=== PATIENT | male | born 1945 | race Caucasian/White ===

== ENCOUNTER 2017-02-12 19:07 | Emergency (ER) | payer MEDICARE, OTHER ==
[2017-02-12 19:21] VITALS: BP 170/96
--- NOTE | 2017-02-12 19:37 | UC ---
Shortness of Breath HPI - HPI Summary HPI Summary: WOKE UP THIS AM FEELING SOB. WORSENED OVER THE DAY. WORSE WITH EXERTION. HAS SOME SWEATS. FEVER NOTED UPON PRESENTATION HERE TO . DENIES CP, NAUSEA. DROVE TO [place] AND BACK TO DAY FOR WORK. DENIES CALF TENDERNESS. HAS SOME DYSURIA SINCE YESTERDAY. H/O HTN, CHOLESTEROL, DM AND CAD S/P 4V CABG. - History of Current Complaint Chief Complaint: UCGeneralIllness Stated Complaint: DIFFICULTY BREATHING Time Seen by Provider: 02/12/17 19:19 Hx Obtained From: Patient, Family/Cartography Supervisor - Onset/Duration: Sudden Onset, Lasting Hours, Still Present Timing: Constant Current Severity: Moderate Dyspnea At: Rest Aggrevating Factors: Movement Alleviating Factors: Nothing Associated Signs & Symptoms: Positive: Fever, Diaphoresis, Edema. Negative: Wheezing, Chest Pain w/Cough, Chest Pain Unrelated to Cough, Nasal Congestion, Dizzy Related History: Obesity - Allergy/Home Medications Allergies/Adverse Reactions: Allergies Allergy/AdvReac Type Severity Reaction Status Date / Time Heparin Allergy Severe See Comment Verified 02/12/17 19:22 PMH/Surg Hx/FS Hx/Imm Hx Endocrine History: Diabetes, Dyslipidemia Cardiovascular History: Cardiac Disease - 4V CABG 2010, Hypertension - Surgical History Surgical History: Yes Surgery Procedure, Year, and Place: CABG-2009 [facility]. BILAT. CATARACTS [facility]-1999 [place], [place] & 2010 [facility]. 09/17/13, BLADDER STONES, [facility] - Family History Known Family History: Positive: Hypertension, Other - CVA - Social History Alcohol Use: None Alcohol Amount: 2 PER DAY Substance Use Type: None Smoking Status (MU): Never Smoked Tobacco - Immunization History Most Recent Influenza Vaccination: 2011 Review of Systems Constitutional: Fever Respiratory: Shortness Of Breath Cardiovascular: Negative Gastrointestinal: Negative Genitourinary: Dysuria All Other Systems Reviewed And Are Negative: Yes Physical Exam Triage Information Reviewed: Yes Appearance: No Pain Distress, Well-Nourished, Ill-Appearing, Obese Vital Signs: Initial Vital Signs Temp 103.6 F 02/12/17 19:19 Pulse 121 02/12/17 19:19 Resp 40 02/12/17 19:19 BP 170/96 02/12/17 19:19 Pulse Ox 91 02/12/17 19:19 Vital Signs Reviewed: Yes Eyes: Positive: Conjunctiva Clear ENT: Positive: Hearing grossly normal Neck: Positive: Supple Respiratory: Positive: Respiratory distress, Crackles - RIGHT BASE - POOR QUALITY LUNG EXAM DUE TO PT INABILITY TO SIT UPRIGHT, Other: - TACHYPNEIC Cardiovascular: Positive: Tachycardia Abdomen Description: Positive: Soft, Other: - MILDLY TENDER DIFFUSELY Musculoskeletal: Positive: Edema @ - 2+ PITTING ANKLE EDEMA. NO CALF TENDERNESS. NEG HOMANS Neurological: Positive: Alert Psychological: Positive: Normal Response To Family, Age Appropriate Behavior. Negative: Abnormal Response To Family Skin: Negative: rashes Diagnostics - EKG Cardiac Rate: Tachycardia - 124BPM Ectopy: None ST Segment: Normal Shortness of Breath Dx - Differential Dx/Diagnosis Provider Diagnoses: DYSPNEA, HYPOXIA, TACHYCARDIA - Physician Notification/Consults Discussed Patient Care With: DR. GREG BELCHER Time Discussed With Above Provider: 19:30 - TO [facility] ER BY AMBULANCE Instructed by Provider To: MD Will See In ED Discharge - Discharge Plan Condition: Guarded Disposition: TRANS HIGHER LVL OF CARE FAC Referrals: Dhiraj Mcgregor MD [Primary Care Provider] -
[2017-02-12] MEDS ORDERED: Ibuprofen TAB* 600 MG PO ONE (19:42)
== END 2017-02-12 19:57 | disposition short-term general hospital (02) ==
LOC: UCEAST 19:07
DX: R06.00 Dyspnea, unspecified (principal); R09.02 Hypoxemia; R00.0 Tachycardia, unspecified; Z95.1 Presence of aortocoronary bypass graft; I10 Essential (primary) hypertension; E11.9 Type 2 diabetes mellitus without complications; E78.00 Pure hypercholesterolemia, unspecified
CPT/HCPCS: 81003; 93005; 99213; A9270-GY; G0463

== ENCOUNTER 2017-02-12 20:06 | Inpatient (IN) | payer MEDICARE ==
[2017-02-12] MEDS ORDERED: NS 0.9% 1000 ML* 1,000 ML IV SCH ×3 (20:15→23:00)
[2017-02-12 20:47] LABS: Hematocrit 47 % (42-52); Hemoglobin 15.8 g/dl (14.0-18.0); Mean Corpuscular HGB Conc 34 g/dl (31-36); Mean Corpuscular Hemoglobin 33 pg (27-31); Mean Corpuscular Volume 98 fL (80-94); Mean Platelet Volume 8 um3 (7.4-10.4); Red Blood Count 4.78 10^6/ul (4.0-5.4); Red Cell Distribution Width 14 % (10.5-15)
[2017-02-12 21:05] LABS: Albumin 3.8 g/dL (3.2-5.2); BUN/Creatinine Ratio 17.7 (8-20); C Reactive Protein 130.37 mg/L (< 5.00); Calcium 9.1 mg/dL (8.6-10.3); EGFR African American 63.4 (>60); EGFR Non-African American 49.3 (>60); Globulin 2.8 g/dL (2-4); Magnesium 1.6 mg/dL (1.9-2.7); Potassium 3.4 mmol/L (3.5-5.0); Total Bilirubin 0.9 mg/dL (0.2-1.0); Total Protein 6.6 g/dL (6.4-8.9)
[2017-02-12 21:21] LABS: Troponin I 0.07 ng/mL (<0.04)
--- NOTE | 2017-02-12 21:28 | RAD ---
INDICATION: Fever COMPARISON: January 12, 2010 TECHNIQUE: An AP portable view obtained at 2103 hours is submitted. FINDINGS: Bones/Soft Tissues: There are no acute bony findings. There is sternotomy is CABG Cardiomediastinal: The heart is mildly prominent, unchanged. Lungs: There are no acute infiltrates. There are mild chronic parenchymal changes in the left chest. Pleura: There are no pleural effusions. Other: None IMPRESSION: POSTOPERATIVE CHANGE. MILD CHRONIC CHANGE LEFT CHEST. NO ACUTE FINDINGS.
[2017-02-12 21:45] LABS: TSH (Thyroid Stimulating Horm) 1.24 mcIU/mL (0.34-5.60)
[2017-02-12 22:34] LABS: Urine Bacteria Absent (Absent); Urine Bilirubin Negative (Negative); Urine Glucose Negative (Negative); Urine Nitrite Negative (Negative)
[2017-02-12] MEDS ORDERED: Levofloxacin 750 MG IVPREMIX(* 750 MG/150 ML BAG IVPB ONE (22:42)
[2017-02-12] MEDS ORDERED: NS 0.9% 1000 ML* 1,000 ML IV ONE (22:43)
[2017-02-12] MEDS ORDERED: Magnesium Sulfate 2 GM IV* 2 GM/50 ML BAG IVPB ONE (22:54)
[2017-02-12] MEDS ORDERED: Albuterol 2.5 MG/3 ML NEB.SOL* (0.083%) INH PRN (22:58)
[2017-02-12] MEDS ORDERED: CMCS: Melatonin (NF) 3 MG TAB PO PRN (22:58)
[2017-02-12] MEDS ORDERED: Ondansetron INJ* 2 MG/ML VIAL IV PRN (22:58)
[2017-02-12] MEDS ORDERED: Nicotine Inhaler* 10 MG AMP INH PRN (22:58)
[2017-02-13] MEDS: Potassium Chlor TAB* 20 MEQ TAB.ER PO SCH ×2 (00:58→02:53)
--- NOTE | 2017-02-13 01:25 | ED ---
john Camacho Timothy, scribed for Edvin Hardy MD on 02/12/17 at 2240 . Complex/Multi-Sys Presentation - HPI Summary HPI Summary: Jerry Ames is a 72 yo male presenting to [facility] with generalized weakness since yesterday. He also c/o rhinorrhea, chest congestion, dysuria, fever, tachycardia, and cough. He denies any abd pain, CP, sore throat. His MHx includes NV, CAD, CABGx3, HTN, DM II, bladder stones. He has seen Dr. Baez. - History Of Current Complaint Chief Complaint: EDWeakness Time Seen by Provider: 02/12/17 22:35 Hx Obtained From: Patient Onset/Duration: Gradual Onset, Lasting Hours, Still Present Timing: Constant Severity Currently: Moderate Severity Initially: Moderate Associated Signs And Symptoms: Positive: Weakness, Cough, Dysuria, Fever, Other - rhinorrhea, tachycardia. Negative: Chest Pain - Allergies/Home Medications Allergies/Adverse Reactions: Allergies Allergy/AdvReac Type Severity Reaction Status Date / Time Heparin Allergy Severe See Comment Verified 02/12/17 19:22 PMH/Surg Hx/FS Hx/Imm Hx Endocrine/Hematology History: Reports: Hx Diabetes - TYPE 2-ON ORAL MEDICATION Denies: Hx Thyroid Disease Cardiovascular History: Reports: Hx Coronary Artery Disease - TRIPLE BYPASS, Hx Hypertension - ON MEDICATION, Other Cardiovascular Problems/Disorders - THALLIUM STRESS TEST/CABG 2009 Respiratory History: Reports: Other Respiratory Problems/Disorders - CHRONIC POST NASAL DRIP Denies: Hx Asthma GI History: Denies: Hx Ulcer, Other GI Disorders Musculoskeletal History: Denies: Other Musculoskeletal History Sensory History: Reports: Hx Cataracts - SKY, Hx Contacts or Glasses - GLASSES Denies: Hx Hearing Aid Opthamlomology History: Reports: Hx Cataracts - SKY, Hx Contacts or Glasses - GLASSES Neurological History: Denies: Other Neuro Impairments/Disorders - Surgical History Surgery Procedure, Year, and Place: CABG-2009 [facility]. BILAT. CATARACTS [facility]-[facility] [place] [place] & 2010 [facility] [place]. 09/17/13, BLADDER STONES, [facility] Hx Anesthesia Reactions: No Infectious Disease History: No Infectious Disease History: Denies: Hx Clostridium Difficile, Hx Hepatitis, Hx Human Immunodeficiency Virus (HIV), Hx of Known/Suspected MRSA, Hx Shingles, Hx Tuberculosis, Hx Known/ Suspected VRE, Hx Known/Suspected VRSA, History Other Infectious Disease, Traveled Outside the [place] in Last 30 Days - Family History Known Family History: Positive: Hypertension, Other - CVA - Social History Alcohol Use: None Alcohol Amount: 2 PER DAY Substance Use Type: Reports: None Smoking Status (MU): Never Smoked Tobacco Review of Systems Positive: Fever Eyes: Negative Positive: Nasal Discharge Positive: Palpitations - tachycardia Positive: Cough Gastrointestinal: Negative Positive: dysuria Musculoskeletal: Negative Skin: Negative Neurological: Negative Psychological: Normal All Other Systems Reviewed And Are Negative: Yes Physical Exam Triage Information Reviewed: Yes Vital Signs On Initial Exam: Initial Vitals Pulse Resp BP Pulse Ox 105 26 161/97 96 02/12/17 21:04 02/12/17 21:04 02/12/17 21:04 02/12/17 21:04 Vital Signs Reviewed: Yes Appearance: Positive: No Pain Distress, Well-Nourished, Ill-Appearing - mild Skin: Positive: Warm, Skin Color Reflects Adequate Perfusion, Dry, Other - hot to touch Head/Face: Positive: Normal Head/Face Inspection Eyes: Positive: EOMI, ARTHUR ENT: Positive: Other - oral mucosa dry Neck: Positive: Supple, Nontender Respiratory/Lung Sounds: Positive: Clear to Auscultation, Breath Sounds Present Cardiovascular: Positive: Tachycardia Abdomen Description: Positive: Nontender, Soft Bowel Sounds: Positive: Present Musculoskeletal: Positive: Normal, Strength/ROM Intact Neurological: Positive: Sensory/Motor Intact, Alert, Oriented to Person Place, Time Psychiatric: Positive: Affect/Mood Appropriate - [place] Coma Scale Coma Scale Total: 15 Diagnostics - Vital Signs Vital Signs Temp Pulse Resp BP Pulse Ox 02/12/17 21:30 100 22 160/81 97 02/12/17 21:16 98.1 F 98 18 161/97 97 02/12/17 21:04 105 26 161/97 96 - Laboratory Lab Results: Lab Results 02/12/17 02/12/17 02/12/17 Range/Units 20:36 20:36 20:36 WBC 10.0 (3.5-10.8) 10^3/ul RBC 4.78 (4.0-5.4) 10^6/ul Hgb 15.8 (14.0-18.0) g/dl Hct 47 (42-52) % MCV 98 H (80-94) fL MCH 33 H (27-31) pg MCHC 34 (31-36) g/dl RDW 14 (10.5-15) % Plt Count 127 L (150-450) 10^3/ul MPV 8 (7.4-10.4) um3 Neut % (Auto) 87.1 H (38-83) % Lymph % (Auto) 3.1 L (25-47) % [place] % (Auto) 9.4 H (1-9) % Eos % (Auto) 0 (0-6) % Baso % (Auto) 0.4 (0-2) % Absolute Neuts (auto) 8.7 H (1.5-7.7) 10^3/ul Absolute Lymphs (auto) 0.3 L (1.0-4.8) 10^3/ul Absolute Monos (auto) 0.9 H (0-0.8) 10^3/ul Absolute Eos (auto) 0 (0-0.6) 10^3/ul Absolute Basos (auto) 0 (0-0.2) 10^3/ul Absolute Nucleated RBC 0 10^3/ul Nucleated RBC % 0 INR (Anticoag Therapy) 1.07 (0.89-1.11) APTT 32.2 (26.0-36.3) seconds Sodium 133 (133-145) mmol/L Potassium 3.4 L (3.5-5.0) mmol/L Chloride 98 L (101-111) mmol/L Carbon Dioxide 24 (22-32) mmol/L Anion Gap 11 (2-11) mmol/L BUN 25 H (6-24) mg/dL Creatinine 1.41 H (0.67-1.17) mg/dL Est GFR ( Amer) 63.4 (>60) Est GFR (Non-Af Amer) 49.3 (>60) BUN/Creatinine Ratio 17.7 (8-20) Glucose 200 H (70-100) mg/dL Lactic Acid (0.5-2.0) mmol/L Calcium 9.1 (8.6-10.3) mg/dL Magnesium 1.6 L (1.9-2.7) mg/dL Total Bilirubin 0.90 (0.2-1.0) mg/dL AST 16 (13-39) U/L ALT 19 (7-52) U/L Alkaline Phosphatase 57 (34-104) U/L Total Creatine Kinase 252 H (10-223) U/L CK-MB (CK-2) 3.3 (0.6-6.3) ng/mL Troponin I 0.07 H* (<0.04) ng/mL C-Reactive Protein 130.37 H (< 5.00) mg/L B-Natriuretic Peptide ( - 100) pg/mL Total Protein 6.6 (6.4-8.9) g/dL Albumin 3.8 (3.2-5.2) g/dL Globulin 2.8 (2-4) g/dL Albumin/Globulin Ratio 1.4 (1-3) Lipase 12 (11.0-82.0) U/L TSH 1.24 (0.34-5.60) mcIU/mL Urine Color Urine Appearance Urine pH (5-9) Ur Specific [place] (1.010-1.030) Urine Protein (Negative) Urine Ketones (Negative) Urine Blood (Negative) Urine Nitrate (Negative) Urine Bilirubin (Negative) Urine Urobilinogen (Negative) Ur Leukocyte Esterase (Negative) Urine WBC (Auto) (Absent) Urine RBC (Auto) (Absent) Urine Bacteria (Absent) Urine Glucose (Negative) 02/12/17 02/12/17 02/12/17 Range/Units 20:36 20:36 21:08 WBC (3.5-10.8) 10^3/ul RBC (4.0-5.4) 10^6/ul Hgb (14.0-18.0) g/dl Hct (42-52) % MCV (80-94) fL MCH (27-31) pg MCHC (31-36) g/dl RDW (10.5-15) % Plt Count (150-450) 10^3/ul MPV (7.4-10.4) um3 Neut % (Auto) (38-83) % Lymph % (Auto) (25-47) % [place] % (Auto) (1-9) % Eos % (Auto) (0-6) % Baso % (Auto) (0-2) % Absolute Neuts (auto) (1.5-7.7) 10^3/ul Absolute Lymphs (auto) (1.0-4.8) 10^3/ul Absolute Monos (auto) (0-0.8) 10^3/ul Absolute Eos (auto) (0-0.6) 10^3/ul Absolute Basos (auto) (0-0.2) 10^3/ul Absolute Nucleated RBC 10^3/ul Nucleated RBC % INR (Anticoag Therapy) (0.89-1.11) APTT (26.0-36.3) seconds Sodium (133-145) mmol/L Potassium (3.5-5.0) mmol/L Chloride (101-111) mmol/L Carbon Dioxide (22-32) mmol/L Anion Gap (2-11) mmol/L BUN (6-24) mg/dL Creatinine (0.67-1.17) mg/dL Est GFR ( Amer) (>60) Est GFR (Non-Af Amer) (>60) BUN/Creatinine Ratio (8-20) Glucose (70-100) mg/dL Lactic Acid 1.1 (0.5-2.0) mmol/L Calcium (8.6-10.3) mg/dL Magnesium (1.9-2.7) mg/dL Total Bilirubin (0.2-1.0) mg/dL AST (13-39) U/L ALT (7-52) U/L Alkaline Phosphatase (34-104) U/L Total Creatine Kinase (10-223) U/L CK-MB (CK-2) (0.6-6.3) ng/mL Troponin I (<0.04) ng/mL C-Reactive Protein (< 5.00) mg/L B-Natriuretic Peptide 275 H ( - 100) pg/mL Total Protein (6.4-8.9) g/dL Albumin (3.2-5.2) g/dL Globulin (2-4) g/dL Albumin/Globulin Ratio (1-3) Lipase (11.0-82.0) U/L TSH (0.34-5.60) mcIU/mL Urine Color Pending Urine Appearance Cloudy Urine pH 6.0 (5-9) Ur Specific [place] 1.022 (1.010-1.030) Urine Protein 3+(>=500 mg/dl) H (Negative) Urine Ketones 1+ H (Negative) Urine Blood 3+ H (Negative) Urine Nitrate Negative (Negative) Urine Bilirubin Negative (Negative) Urine Urobilinogen Negative (Negative) Ur Leukocyte Esterase 2+ H (Negative) Urine WBC (Auto) 3+(>20/hpf) H (Absent) Urine RBC (Auto) 3+(>10/hpf) H (Absent) Urine Bacteria Absent (Absent) Urine Glucose Negative (Negative) Result Diagrams: 02/12/17 20:36 02/12/17 20:36 Lab Statement: Any lab studies that have been ordered have been reviewed, and results considered in the medical decision making process. - Radiology CXR Xray Interpretation: No Acute Changes - IMPRESSION: POSTOPERATIVE CHANGE. MILD CHRONIC CHANGE LEFT CHEST. NO ACUTE FINDINGS. Radiology Interpretation Completed By: Radiologist - EKG 2058 Cardiac Rate: Tachycardia - 105 BPM EKG Interpretation: Sinus tachycardia @ 105BPM, Complex Multi-Symp Course/Dx Assessment/Plan: Jerry Ames is a 72 yo male [facility] with generalized weakness for the past day with accompanying rhinorrhea, chest congestion, dysuria, fever, and cough. His medication list is reviewed this visit. In the ED course he received IV fluids and levaquin. His EKG suggests tachcardia, ST depression, and multiple PVC's. His CXR; no acute findings. After cliical examination and review of his lab and imaging studies, as well as discussion with Dr. Sanchez, he will be admitted to [facility] for further observation, evaluation, and treatment. NO CRITICAL CARE TIME. ADMIT HOSPITALIST STABLE. - Diagnoses Provider Diagnoses: UTI (urinary tract infection), Fever, Elevated troponin - Physician Notifications Discussed Care Of Patient With: Brandon Sanchez - Discussed Pt condition, accepts Pt for admission Time Discussed With Above Provider: 22:43 Instructed by Provider To: Admit As Inpatient Discharge - Discharge Plan Condition: Stable Disposition: ADMITTED TO [facility] The documentation as recorded by the john russell Timothy accurately reflects the service I personally performed and the decisions made by me, Edvin Hardy MD.
[2017-02-13] MEDS ORDERED: Mouth Piece, Nicotine* 1 EACH CARTRIDGE INH ONE (02:00)
--- NOTE | 2017-02-13 05:08 | HP ---
H&P (Free Text) History and Physical: PCP: Shantelle Mcgregor MD Urology: Harish Baez MD Date/Time of Evaluation: 02/12/2017 5665 CC: fatigue & malaise HPI: Mr Ames is a 72YO male HX HTN, DM2, bladder CA who reports 2 days of fatigue and malaise associated with some chest congestion, sweats, & cough. Today while in a meeting he developed chills and rigors, but no subjective fevers. Later in the day he noticed his urine to be blood tinged prompting him to present for evaluation. Activity makes him feel worse, no alleviating factors noted. 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 Father in his 90s w/ DM2 & Parkinsonism. ROS: as above, otherwise reviewed and all were negative Constitutional: NAD, normally developed, obese white male vitals: Vital Signs Temp 37.3 C 02/13/17 04:19 Pulse 124 02/13/17 04:19 Resp 26 02/13/17 04:19 BP 154/67 02/13/17 04:19 Pulse Ox 99 02/13/17 04:19 Intake & Output 02/12/17 02/12/17 02/13/17 11:59 23:59 11:59 Intake Total 1000 Balance 1000 Weight 114.986 kg Intake: IV Fluids 1000 HEENM: atraumatic; sclera/conjunctiva: non-icteric/clear; hearing: clinically intact; oropharynx: clear, mucosa moist Neck: soft tissue: non-tender, no nuchal rigidity; thyroid: normal Pulmonary: clear to auscultation bilaterally, good aeration, no accessory muscle use CV: RR/RR, normal S1S2, no carotid bruit, no jugular venous distention, 2+ B DP/ PT, no edema Abdominal: soft, non-distended, non-tender, no rebound/guarding/rigidity, normoactive bowel sounds, no hepatosplenomegaly or masses, no costovertebral angle tenderness, prostate enlarge but non-tender Musculoskeletal: general: grossly intact; gait: stable Integumental: normal appearance and texture of exposed skin Psychiatric orientation: AA&O to PPS affect: calm mood: cooperative eye contact: good content: reliable responses: timely insight: good Testing: Lab Results 02/12/17 02/12/17 02/12/17 Range/Units 20:36 20:36 20:36 WBC 10.0 (3.5-10.8) 10^3/ul RBC 4.78 (4.0-5.4) 10^6/ul Hgb 15.8 (14.0-18.0) g/dl Hct 47 (42-52) % MCV 98 H (80-94) fL MCH 33 H (27-31) pg MCHC 34 (31-36) g/dl RDW 14 (10.5-15) % Plt Count 127 L (150-450) 10^3/ul MPV 8 (7.4-10.4) um3 Neut % (Auto) 87.1 H (38-83) % Lymph % (Auto) 3.1 L (25-47) % [place] % (Auto) 9.4 H (1-9) % Eos % (Auto) 0 (0-6) % Baso % (Auto) 0.4 (0-2) % Absolute Neuts (auto) 8.7 H (1.5-7.7) 10^3/ul Absolute Lymphs (auto) 0.3 L (1.0-4.8) 10^3/ul Absolute Monos (auto) 0.9 H (0-0.8) 10^3/ul Absolute Eos (auto) 0 (0-0.6) 10^3/ul Absolute Basos (auto) 0 (0-0.2) 10^3/ul Absolute Nucleated RBC 0 10^3/ul Nucleated RBC % 0 INR (Anticoag Therapy) 1.07 (0.89-1.11) APTT 32.2 (26.0-36.3) seconds Sodium 133 (133-145) mmol/L Potassium 3.4 L (3.5-5.0) mmol/L Chloride 98 L (101-111) mmol/L Carbon Dioxide 24 (22-32) mmol/L Anion Gap 11 (2-11) mmol/L BUN 25 H (6-24) mg/dL Creatinine 1.41 H (0.67-1.17) mg/dL Est GFR ( Amer) 63.4 (>60) Est GFR (Non-Af Amer) 49.3 (>60) BUN/Creatinine Ratio 17.7 (8-20) Glucose 200 H (70-100) mg/dL POC Glucose (mg/dL) (74-106) mg/dL Hemoglobin A1c (Less than 6.0) % Lactic Acid (0.5-2.0) mmol/L Calcium 9.1 (8.6-10.3) mg/dL Magnesium 1.6 L (1.9-2.7) mg/dL Total Bilirubin 0.90 (0.2-1.0) mg/dL AST 16 (13-39) U/L ALT 19 (7-52) U/L Alkaline Phosphatase 57 (34-104) U/L Total Creatine Kinase 252 H (10-223) U/L CK-MB (CK-2) 3.3 (0.6-6.3) ng/mL Troponin I 0.07 H* (<0.04) ng/mL C-Reactive Protein 130.37 H (< 5.00) mg/L B-Natriuretic Peptide ( - 100) pg/mL Total Protein 6.6 (6.4-8.9) g/dL Albumin 3.8 (3.2-5.2) g/dL Globulin 2.8 (2-4) g/dL Albumin/Globulin Ratio 1.4 (1-3) Lipase 12 (11.0-82.0) U/L TSH 1.24 (0.34-5.60) mcIU/mL Urine Color Urine Appearance Urine pH (5-9) Ur Specific [place] (1.010-1.030) Urine Protein (Negative) Urine Ketones (Negative) Urine Blood (Negative) Urine Nitrate (Negative) Urine Bilirubin (Negative) Urine Urobilinogen (Negative) Ur Leukocyte Esterase (Negative) Urine WBC (Auto) (Absent) Urine RBC (Auto) (Absent) Urine Bacteria (Absent) Urine Glucose (Negative) 02/12/17 02/12/17 02/12/17 Range/Units 20:36 20:36 20:36 WBC (3.5-10.8) 10^3/ul RBC (4.0-5.4) 10^6/ul Hgb (14.0-18.0) g/dl Hct (42-52) % MCV (80-94) fL MCH (27-31) pg MCHC (31-36) g/dl RDW (10.5-15) % Plt Count (150-450) 10^3/ul MPV (7.4-10.4) um3 Neut % (Auto) (38-83) % Lymph % (Auto) (25-47) % [place] % (Auto) (1-9) % Eos % (Auto) (0-6) % Baso % (Auto) (0-2) % Absolute Neuts (auto) (1.5-7.7) 10^3/ul Absolute Lymphs (auto) (1.0-4.8) 10^3/ul Absolute Monos (auto) (0-0.8) 10^3/ul Absolute Eos (auto) (0-0.6) 10^3/ul Absolute Basos (auto) (0-0.2) 10^3/ul Absolute Nucleated RBC 10^3/ul Nucleated RBC % INR (Anticoag Therapy) (0.89-1.11) APTT (26.0-36.3) seconds Sodium (133-145) mmol/L Potassium (3.5-5.0) mmol/L Chloride (101-111) mmol/L Carbon Dioxide (22-32) mmol/L Anion Gap (2-11) mmol/L BUN (6-24) mg/dL Creatinine (0.67-1.17) mg/dL Est GFR ( Amer) (>60) Est GFR (Non-Af Amer) (>60) BUN/Creatinine Ratio (8-20) Glucose (70-100) mg/dL POC Glucose (mg/dL) (74-106) mg/dL Hemoglobin A1c 7.2 H (Less than 6.0) % Lactic Acid 1.1 (0.5-2.0) mmol/L Calcium (8.6-10.3) mg/dL Magnesium (1.9-2.7) mg/dL Total Bilirubin (0.2-1.0) mg/dL AST (13-39) U/L ALT (7-52) U/L Alkaline Phosphatase (34-104) U/L Total Creatine Kinase (10-223) U/L CK-MB (CK-2) (0.6-6.3) ng/mL Troponin I (<0.04) ng/mL C-Reactive Protein (< 5.00) mg/L B-Natriuretic Peptide 275 H ( - 100) pg/mL Total Protein (6.4-8.9) g/dL Albumin (3.2-5.2) g/dL Globulin (2-4) g/dL Albumin/Globulin Ratio (1-3) Lipase (11.0-82.0) U/L TSH (0.34-5.60) mcIU/mL Urine Color Urine Appearance Urine pH (5-9) Ur Specific [place] (1.010-1.030) Urine Protein (Negative) Urine Ketones (Negative) Urine Blood (Negative) Urine Nitrate (Negative) Urine Bilirubin (Negative) Urine Urobilinogen (Negative) Ur Leukocyte Esterase (Negative) Urine WBC (Auto) (Absent) Urine RBC (Auto) (Absent) Urine Bacteria (Absent) Urine Glucose (Negative) 02/12/17 02/13/17 02/13/17 Range/Units 21:08 00:38 04:19 WBC (3.5-10.8) 10^3/ul RBC (4.0-5.4) 10^6/ul Hgb (14.0-18.0) g/dl Hct (42-52) % MCV (80-94) fL MCH (27-31) pg MCHC (31-36) g/dl RDW (10.5-15) % Plt Count (150-450) 10^3/ul MPV (7.4-10.4) um3 Neut % (Auto) (38-83) % Lymph % (Auto) (25-47) % [place] % (Auto) (1-9) % Eos % (Auto) (0-6) % Baso % (Auto) (0-2) % Absolute Neuts (auto) (1.5-7.7) 10^3/ul Absolute Lymphs (auto) (1.0-4.8) 10^3/ul Absolute Monos (auto) (0-0.8) 10^3/ul Absolute Eos (auto) (0-0.6) 10^3/ul Absolute Basos (auto) (0-0.2) 10^3/ul Absolute Nucleated RBC 10^3/ul Nucleated RBC % INR (Anticoag Therapy) (0.89-1.11) APTT (26.0-36.3) seconds Sodium (133-145) mmol/L Potassium (3.5-5.0) mmol/L Chloride (101-111) mmol/L Carbon Dioxide (22-32) mmol/L Anion Gap (2-11) mmol/L BUN (6-24) mg/dL Creatinine (0.67-1.17) mg/dL Est GFR ( Amer) (>60) Est GFR (Non-Af Amer) (>60) BUN/Creatinine Ratio (8-20) Glucose (70-100) mg/dL POC Glucose (mg/dL) 225 H (74-106) mg/dL Hemoglobin A1c (Less than 6.0) % Lactic Acid (0.5-2.0) mmol/L Calcium (8.6-10.3) mg/dL Magnesium (1.9-2.7) mg/dL Total Bilirubin (0.2-1.0) mg/dL AST (13-39) U/L ALT (7-52) U/L Alkaline Phosphatase (34-104) U/L Total Creatine Kinase (10-223) U/L CK-MB (CK-2) (0.6-6.3) ng/mL Troponin I 0.15 H* (<0.04) ng/mL C-Reactive Protein (< 5.00) mg/L B-Natriuretic Peptide ( - 100) pg/mL Total Protein (6.4-8.9) g/dL Albumin (3.2-5.2) g/dL Globulin (2-4) g/dL Albumin/Globulin Ratio (1-3) Lipase (11.0-82.0) U/L TSH (0.34-5.60) mcIU/mL Urine Color Red A Urine Appearance Cloudy Urine pH 6.0 (5-9) Ur Specific [place] 1.022 (1.010-1.030) Urine Protein 3+(>=500 mg/dl) H (Negative) Urine Ketones 1+ H (Negative) Urine Blood 3+ H (Negative) Urine Nitrate Negative (Negative) Urine Bilirubin Negative (Negative) Urine Urobilinogen Negative (Negative) Ur Leukocyte Esterase 2+ H (Negative) Urine WBC (Auto) 3+(>20/hpf) H (Absent) Urine RBC (Auto) 3+(>10/hpf) H (Absent) Urine Bacteria Absent (Absent) Urine Glucose Negative (Negative) ECG, personally reviewed: sinus tachycardia rate 105, no ischemia, old inferior NH CXR, personally reviewed: IMPRESSION: POSTOPERATIVE CHANGE. MILD CHRONIC CHANGE LEFT CHEST. NO ACUTE FINDINGS. Impression: 72M presenting with infectious burden most likely UTI vs pneumonia DIAGNOSIS & PLAN Primary infectious burden, suspect UTI vs pneumonia : IV levofloxacin : IVFs : blood, sputum, & urine CXs : supplemental oxygen : supportive care elevated troponin : HX CAD/3vCABG/NH : suspect demand ischemia : trend : telemetry Secondary bladder stone : HX bladder stone : UA consistent w/ UTI : consider urology consult in AM HTN : review meds once reconciled DM2 : hold metformin : insulin carb ratio diet : A1c 7.2 : basal/bolus/correctional insulin HLD : review meds once reconciled Admission Rational: observation for initiation of ABX & r/o ACS DVTp: SCDs Code Status: full HCP:
[2017-02-13] MEDS ORDERED: Metoprolol Tartrate IV* 1 MG/ML 5 ML VIAL IV ONE (05:15)
[2017-02-13] MEDS: Omeprazole CAP* 20 MG PO SCH (05:42)
[2017-02-13] MEDS ORDERED: Heparin VIAL(*) 5000 UNITS/ML VIAL (FIVE THOUSAND) SUBCUT SCH (06:00)
[2017-02-13 06:32] LABS: Hematocrit 45 % (42-52); Hemoglobin 15.1 g/dl (14.0-18.0); Mean Corpuscular HGB Conc 34 g/dl (31-36); Mean Corpuscular Hemoglobin 33 pg (27-31); Mean Corpuscular Volume 99 fL (80-94); Mean Platelet Volume 8 um3 (7.4-10.4); Red Blood Count 4.54 10^6/ul (4.0-5.4); Red Cell Distribution Width 14 % (10.5-15); White Blood Count 9.4 10^3/ul (3.5-10.8)
[2017-02-13 06:59] LABS: BUN/Creatinine Ratio 17.9 (8-20); Calcium 8.5 mg/dL (8.6-10.3); EGFR African American 74.2 (>60); EGFR Non-African American 57.7 (>60); Magnesium 1.9 mg/dL (1.9-2.7); Potassium 4.1 mmol/L (3.5-5.0)
[2017-02-13 07:26] LABS: Troponin I 0.14 ng/mL (<0.04)
[2017-02-13] MEDS: Aspirin EC Low Dose* 81 MG TAB.EC PO SCH (08:16)
[2017-02-13] MEDS: Metoprolol Succinate XL TAB* 100 MG PO SCH ×2 (08:16→21:19)
[2017-02-13] MEDS: Acetaminophen TAB* 325 MG PO PRN ×3 (08:16→22:21)
--- NOTE | 2017-02-13 08:34 | PN ---
Subjective - Subjective Reason for Note: Progress Note History: I reviewed Mr Ames's history with the patient and Dr. Sanchez's admitting H and P. He developed increasing shortness of breath around 1 week ago - attributed it to allergies. He had no cough, sputum, wheezing. He denies paroxysmal nocturnal dyspnea and orthopnea. Last (today Sat) he developed urinary frequency, dysuria. Over the weekend he had night sweats, chills and shakes. This worsened and his told him to go to the ED last night. This morning he has spiked a fever and also developed more pronounced dypnea. He denies any pain. He had his last cystoscopy with Dr. Baez around 4 months ago and there was no bladder stone. He has had no rash or skin infections. Active Problems: Active Problems Fever (Acute) R50.9 Tachypnea (Acute) R06.82 Troponin I above reference range (Acute) R74.8 Urinary tract infection (Acute) Aortic regurgitation (Chronic) I35.1 Coronary arteriosclerosis (Chronic) I25.10 Essential hypertension (Chronic) I10 History of bladder stone (Chronic) Z87.448 Hx of CABG (Chronic) Mitral regurgitation (Chronic) Obesity (BMI 35.0-39.9 without comorbidity) (Chronic) E66.9 Type 2 diabetes mellitus (Chronic) Current Medications: Current Medications Acetaminophen (Tylenol Tab*) 650 mg PO Q6H PRN PRN Reason: FEVER/PAIN Last Admin: 02/13/17 08:16 Dose: 650 mg Albuterol (Ventolin 2.5 Mg/3 Ml Neb.Holly*) 2.5 mg INH Q2H PRN PRN Reason: SOB/WHEEZING Aspirin (Aspirin Ec Low Dose*) 81 mg PO DAILY [facility] Last Admin: 02/13/17 08:16 Dose: 81 mg Atorvastatin Calcium (Lipitor*) 20 mg PO 1700 [facility] Device (Tiotropium Inhaler Device*) 1 each INH 0900 ONE Stop: 02/13/17 09:01 Levofloxacin/Dextrose (Levaquin 750 Mg Ivpremix(*)) 750 mg in 150 mls @ 100 mls /hr IVPB Q48H [facility] Sodium Chloride (Ns 0.9% 1000 Ml*) 1,000 mls @ 125 mls/hr IV PER RATE [facility] Last Admin: 02/13/17 01:02 Dose: 125 mls/hr Insulin Glargine (Lantus(*)) 28 units SUBCUT 2100 [facility] Stop: 02/14/17 20:00 Insulin Human Lispro (Humalog*) 0 units SUBCUT AC [facility] PRN Reason: Protocol Insulin Human Lispro (Humalog*) 0 units SUBCUT ACHS [facility] PRN Reason: Protocol Melatonin (Melatonin (Nf)) 3 mg PO BEDTIME PRN; Protocol PRN Reason: Sleep Metoprolol Succinate (Toprol Xl Tab*) 100 mg PO BID [facility] Last Admin: 02/13/17 08:16 Dose: 100 mg Mometasone Furoate/Formoterol Fumar (Dulera 200/5 Mdi*) 2 puff INH BID [facility] Nicotine (Nicotine Inhaler*) 10 mg INH Q2H PRN PRN Reason: CRAVING Omeprazole (Prilosec Cap*) 20 mg PO DAILY@0600 [facility] Last Admin: 02/13/17 05:42 Dose: 20 mg Ondansetron HCl (Zofran Inj*) 4 mg IV Q6H PRN PRN Reason: NAUSEA Tiotropium Lane (Spiriva Cap.Inh*) 1 cap INH DAILY [facility] - Review of Systems Constitutional Symptoms: Yes: Fever, Night Sweats Dermatology: Rash: No Pulmonary: Positive: Respiratory Distress Negative: Cough, Sputum, Hemoptysis, Home Oxygen Cardiology: Positive: Shortness of Breath, Swelling of Ankles Negative: Chest Pain, Palpitations, Faintness, Syncope, Proximal NocturnalDyspnea, Orthopnoea Gastroenterology: Negative: Abdominal Pain, Nausea, Vomiting, Anorexia, Change in Bowel Habits Genital - Urinary: Positive: Dysuria, Hematuria, Polyuria Home Medications: Home Medications Medication Instructions Recorded Confirmed Type Aspirin [Aspir-Low] 81 mg PO DAILY 05/07/13 02/12/17 History Metformin HCl 500 mg PO BID 05/07/13 02/12/17 History Metoprolol Succinate [Metoprolol 100 mg PO BID 09/04/13 02/12/17 History Succinate ER] Simvastatin TAB(NF) [Zocor(NF)] 40 mg PO 1700 09/04/13 02/12/17 History Allergies: Allergies Allergy/AdvReac Type Severity Reaction Status Date / Time Heparin Allergy Severe See Comment Verified 02/12/17 19:22 Objective - Vital Signs Vital Signs: Vital Signs 0602/13/17 02/13/17 23:56 04:19 04:56 Temperature 97.6 F 99.1 F Pulse Rate 99 124 Respiratory 22 26 Rate Blood Pressure 155/74 154/67 (mmHg) O2 Sat by Pulse 95 99 93 Oximetry 02/13/17 07:19 Temperature 102.1 F Pulse Rate 111 Respiratory 18 Rate Blood Pressure 152/95 (mmHg) O2 Sat by Pulse 96 Oximetry - Intake and Output Intake and Output: Intake & Output 02/10/17 02/11/17 02/12/17 02/13/17 11:59 11:59 11:59 11:59 Intake Total 547 Balance 547 Weight 252 lb Intake: IV Fluids 497 Normal Saline 281 IVPB 50 Magnesium 50 Oral 0 Other: Estimated Void Medium # Bowel Movements 0 # Voids 0 Intake and Output Start: 02/12/17 23: 56 Freq: DAILY@0600,1400,2200 Status: Active Document 02/13/17 06:00 [id number] (Rec: 02/13/17 06:09 [id number] [id number]) - Physical Exam General Physical Exam Comment: He is plethoric and has tachypnea. General: No Cyanosis, No Anemia, No Jaundice, No Clubbing Skin: Normal: Rash, Lesions Lungs and Chest: Yes: Chest Expansion Full, Chest Expansion Symetrica, Percussion Note Resonant, Vessicular Breath Sounds, Respiratory Distress, Other - tachypnea. No: Crackles, Wheezes, Use of Accessory Muscles Heart Rate and Rhythm: Tachycardia JVP: Not Elevated Additional Cardiovascular: Yes: Normal Heart Sounds, Heart Murmur - systolic murmur LSE and aortic area, Pedal Edema - trace. No: Carotid Bruits Abdominal Exam: Yes: Soft, Bowel Sounds Present. No: Distention, Abdominal Mass , Hepatomegaly, Abdominal Tenderness - Extremities Cranial Nerves II-XII Intact: Yes Limbs: Normal Power, Normal Tone - Neuro Orientation: A/O x3 Speech: Normal Results - Results Lab Results: Laboratory Results - last 24 hr 02/13/17 02/13/17 02/13/17 00:38 04:19 06:05 WBC 9.4 RBC 4.54 Hgb 15.1 Hct 45 MCV 99 H MCH 33 H MCHC 34 RDW 14 Plt Count 121 L MPV 8 Neut % (Auto) 85.4 H Lymph % (Auto) 3.0 L [place] % (Auto) 11.0 H Eos % (Auto) 0.1 Baso % (Auto) 0.5 Absolute Neuts (auto) 8.0 H Absolute Lymphs (auto) 0.3 L Absolute Monos (auto) 1.0 H Absolute Eos (auto) 0 Absolute Basos (auto) 0 Absolute Nucleated RBC 0 Nucleated RBC % 0 Sodium Potassium Chloride Carbon Dioxide Anion Gap BUN Creatinine Est GFR ( Amer) Est GFR (Non-Af Amer) BUN/Creatinine Ratio Glucose POC Glucose (mg/dL) 225 H Calcium Magnesium Troponin I 0.15 H* 02/13/17 02/13/17 06:05 07:38 WBC RBC Hgb Hct MCV MCH MCHC RDW Plt Count MPV Neut % (Auto) Lymph % (Auto) [place] % (Auto) Eos % (Auto) Baso % (Auto) Absolute Neuts (auto) Absolute Lymphs (auto) Absolute Monos (auto) Absolute Eos (auto) Absolute Basos (auto) Absolute Nucleated RBC Nucleated RBC % Sodium 134 Potassium 4.1 Chloride 103 Carbon Dioxide 23 Anion Gap 8 BUN 22 Creatinine 1.23 H Est GFR ( Amer) 74.2 Est GFR (Non-Af Amer) 57.7 BUN/Creatinine Ratio 17.9 Glucose 188 H POC Glucose (mg/dL) 189 H Calcium 8.5 L Magnesium 1.9 Troponin I 0.14 H* Other Results/Reports: EKG Sinus tachcardia 105 OK 147 QTc 483 QRSD 107 QRS [place] -34. Multiple VEs. Intraventricular conduction abnormality. LAFB. No ST-T changes. Assessment - Problem List Assessment: Patient Problems Fever (Acute) Tachypnea (Acute) Troponin I above reference range (Acute) Urinary tract infection (Acute) Aortic regurgitation (Chronic) Coronary arteriosclerosis (Chronic) Essential hypertension (Chronic) History of bladder stone (Chronic) Hx of CABG (Chronic) Mitral regurgitation (Chronic) Obesity (BMI 35.0-39.9 without comorbidity) (Chronic) Type 2 diabetes mellitus (Chronic) Plan: Fever (Acute)/Urinary tract infection (Acute) He has evidence on urinalysis of a UTI. Levofloxacin is a good choice of antibacterial Tachypnea (Acute)/Troponin I above reference range (Acute) His EKG shows a tachycardia. There is no S1Q3T3 pattern. No evidence of acute ST-T changes. Since his lungs sound clear, I am concerned about pulmonary embolism. I am also concerned about acute congestive cardiac failure - though I hear no basal crackles. I note his troponin I was elevated, but is coming down. His BNP is elevated - his baseline is 46. Troponin I raises the possibililty of a subendocardial ischemic injury - though I don't think this is the pattern here. I am also concerned about infective endocarditis with acute valvular issues. I have enclosed his last visit report with Dr. Tracy 08/06/16 in the chart. His last transthoracic echocardiogram 07/17/16 - Normal LV and EF 50 - 55%. Impaired diastolic relaxation, mild to moderate left atrial dilatation. Mild to moderate AI, Mild to moderate MR, Mild to moderate TR, mild pulmonary hypertension, mildly dilated ascending aorta. 10/24/09 CABG - COMER to LAD and sequential saphenous veing graft to the obtuse marinal and diagonal vessels. * CTA chest to rule out PE * BNP * Transthoracic echocardiogram Aortic regurgitation (Chronic) mild to moderate Coronary arteriosclerosis (Chronic) mild to moderate Essential hypertension (Chronic) stable BP - not hypovolemic History of bladder stone (Chronic) per Dr. Baez Hx of CABG (Chronic) see above Mitral regurgitation (Chronic) mild to moderate Obesity (BMI 35.0-39.9 without comorbidity) (Chronic) Type 2 diabetes mellitus (Chronic) well controlled as an outpatient. Running a little high due to stress. I will increase his basal insulin. I discussed the above with the patient and with his Steph. Steph thinks that the dyspnea and the urinary symptoms are different processes. They agree with the management plan.
[2017-02-13] MEDS ORDERED: Spiriva Inhaler DEVICE* 1 EACH DEVICE INH ONE (09:00)
[2017-02-13] MEDS ORDERED: Iodixanol* (CONTRAST) 320 MG/ML 100 ML SDV IV SCH (09:12)
[2017-02-13] MEDS: Insulin LISPRO* 1 UNITS UNIT SUBCUT SCH ×7 (09:20→21:19)
[2017-02-13] MEDS: Mometasone/Formoter 200/5 MDI INH SCH ×2 (10:38→19:15)
[2017-02-13] MEDS: Tiotropium CAP.INH* CAP.INH/18 MCG INH SCH (10:39)
--- NOTE | 2017-02-13 11:40 | ECHO ---
Patient: FÁTIMA DECKER [facility] Rec#: [id number] : 1945 Date: 02/13/2017 Age: 72y Height: 175.26 cm / 69.0 in Weight: 113.4 kg / 249.9 lbs Sex: M BSA: 2.27 Room#: 439 Admit Date#: 02/12/2017 Type: Inpatient Referring: Brandon Sanchez MD Reading: Sade Parada MD Patient Companion: Jasmine Ruiz,RDCS,RDMS CC: Dhiraj Mcgregor MD CC: Bridger Tracy MD Transthoracic Echocardiogram Indication: Fever, Elevated Trop, Premature beats BP: 154/67 HR: 88 Rhythm: NSR with PVCs Findings History: CAD, SC, CABG, HTN, DM, HLD, bladder cancer Technical Comments: The study quality is fair. Completed 1035 Left Ventricle: The left ventricular chamber size is normal. Mild concentric left ventricular hypertrophy is observed. Basal interventricular septum shows moderate thickening. Left ventricular systolic function is at the lower limits of normal. The estimated ejection fraction is 45-50%. There is an E to A reversal in the mitral valve flow pattern suggestive of diastolic dysfunction. Left Atrium: The left atrial chamber size is normal. Right Ventricle: The right ventricle wall thickness is mildly increased. The right ventricular cavity size is normal. The right ventricular global systolic function is mildly reduced. Right Atrium: The right atrium is slightly dilated. Aortic Valve: The aortic valve is trileaflet. The aortic valve leaflets are mildly thickened. There is mild aortic regurgitation. There is no evidence of aortic stenosis. Mitral Valve: The mitral valve leaflets appear normal. There is a trace of mitral regurgitation. There is no evidence of mitral stenosis. Tricuspid Valve: The tricuspid valve leaflets are normal. There is trace to mild tricuspid regurgitation. There is evidence of mild pulmonary hypertension. Pulmonic Valve: The pulmonic valve appears normal. There is a trace pulmonic regurgitation. Pericardium: There is no significant pericardial effusion. Aorta: There is mild dilatation of the ascending aorta.3.5 cm The aortic arch is not well visualized. There is no dilation of the aortic root. Pulmonary Artery: The main pulmonary artery is not well visualized. Venous: The inferior vena cava is not visualized. Conclusions Mild concentric left ventricular hypertrophy is observed. Left ventricular systolic function is at the lower limits of normal. The estimated ejection fraction is 50%. There is an E to A reversal in the mitral valve flow pattern suggestive of diastolic dysfunction. The right ventricle wall thickness is mildly increased. The right ventricular global systolic function is mildly reduced. There is mild aortic regurgitation due AV sclerosis. There is a trace of mitral regurgitation. There is trace to mild tricuspid regurgitation. There is evidence of mild pulmonary hypertension: 35 mHg. Compared with prior echo of 07/17/16, prior LVH moderate, prior EF 50-55%, all valve insufficiency has improved, prior AI mild t mod, prior MR mild to mod, prior TR mild to moderate. Aorta diameter previously 3.9 cm. Measurements Name Value Normal Range RVIDd (AP) 2D 2.6 cm (0.9 - 2.6) RVDdMajor (2D) 2.7 cm (2.2 - 4.4) RAd ISD 4CH 5 cm (3.4 - 4.9) RA (A4C)W 4.8 cm (2.9 - 4.6) IVSd (2D) 1.7 cm (0.6 - 1) LVPWd (2D) 1.3 cm (0.6 - 1) LVIDd (2D) 4.5 cm (3.6 - 5.4) LVIDs (2D) 4.3 cm - LV FS (2D) 4 % (25 - 45) Aortic Annulus 2.2 cm (1.4 - 2.6) Ao root diameter (2D) 2.7 cm (2.1 - 3.5) Ascending Ao 3.5 cm (2.1 - 3.4) LA dimension (AP) 2D 4.7 cm (2.3 - 3.8) LAd ISD 4CH 5.2 cm (2.9 - 5.3) LA ISD 4CH W 4.4 cm (2.5 - 4.5) Name Value Normal Range LA ESV SP 4CH (A/L) 67.01 ml - LA ESV SP 2CH (A/L) 41.88 ml - LA ESV BP (A/L) 55.54 ml - LA ESV BP (A/L) index 24.5 ml/m2 - LA ESV SP 4CH (MOD) 59.86 ml - LA ESV SP 2CH (MOD) 37.81 ml - Name Value Normal Range MV E-wave Vmax 0.6 m/sec - MV deceleration time 142.1 msec - MV A-wave Vmax 1 m/sec - MV E:A ratio 0.6 ratio - P. vein S-wave Vmax 0.4 m/sec - P. vein D-wave Vmax 0.6 m/sec - P. vein S:D Vmax ratio 0.7 ratio - P. vein A-wave duration 110.7 msec - LV septal e' Vmax 0.05 m/sec - LV lateral e' Vmax 0.08 m/sec - LV E:e' septal ratio 12 ratio - LV E:e' lateral ratio 7.5 ratio - Name Value Normal Range AV Vmax 1.6 m/sec - AV VTI 26 cm - AV peak gradient 10 mmHg - AV mean gradient 5.7 mmHg - LVOT Vmax 0.9 m/sec - LVOT VTI 16.6 cm - LVOT peak gradient 3.3 mmHg - LVOT mean gradient 1.9 mmHg - CLAUS Vmax 0.6 m/sec - Name Value Normal Range TR Vmax 2.8 m/sec - TR peak gradient 32 mmHg - RAP 3 mmHg - RVSP 35 mmHg - Name Value Normal Range PV Vmax 0.8 m/sec - PV peak gradient 2.6 mmHg -
--- NOTE | 2017-02-13 12:00 | RAD ---
Indication: Pulmonary embolism, pneumonia. Contrast: Contrast volume needle gauge CTA of the chest was performed after IV contrast administration. Coronal and sagittal reconstructed images were obtained. Comparison previous exam dated November 04, 2009. The pulmonary arterial tree is well opacified. There are no filling defects present to suggest pulmonary embolus. The inferior thyroid lobes are unremarkable. No mediastinal or hilar adenopathy is noted. The heart demonstrates no pericardial effusion. Calcified lymph nodes are noted in the subcarinal area. The trachea and major bronchi demonstrates no evidence of alveolar consolidation or focal nodules. The axilla demonstrates no evidence of abnormal masses. The visualized abdominal organs demonstrates hepatic steatosis. IMPRESSION: NO EVIDENCE OF PULMONARY EMBOLUS IS NOTED. CALCIFIED LYMPH NODES IN THE SUBCARINAL AREA. NO EVIDENCE OF ALVEOLAR CONSOLIDATION IS NOTED. HEPATIC STEATOSIS IS PRESENT.
[2017-02-13] MEDS: Atorvastatin* 20 MG TAB PO SCH (16:56)
[2017-02-13] MEDS ORDERED: Insulin GLARGINE(*) 1 UNITS UNIT SUBCUT SCH ×2 (21:00)
[2017-02-13] MEDS ORDERED: Levofloxacin 750 MG IVPREMIX(* 750 MG/150 ML BAG IVPB ONE (23:00)
[2017-02-14 06:04] LABS: Hematocrit 42 % (42-52); Hemoglobin 13.9 g/dl (14.0-18.0); Mean Corpuscular HGB Conc 33 g/dl (31-36); Mean Corpuscular Hemoglobin 33 pg (27-31); Mean Corpuscular Volume 100 fL (80-94); Mean Platelet Volume 8 um3 (7.4-10.4); Red Blood Count 4.25 10^6/ul (4.0-5.4); Red Cell Distribution Width 14 % (10.5-15); White Blood Count 7.6 10^3/ul (3.5-10.8)
[2017-02-14 06:17] LABS: C Reactive Protein 146.13 mg/L (< 5.00); Calcium 8.4 mg/dL (8.6-10.3); Direct Bilirubin 0.2 mg/dL (0.03-0.18); EGFR African American 94.2 (>60); EGFR Non-African American 73.2 (>60); Globulin 2.5 g/dL (2-4); Indirect Bilirubin 0.3 mg/dL (0.3-1.0); Potassium 4.3 mmol/L (3.5-5.0); Total Bilirubin 0.5 mg/dL (0.2-1.0); Total Protein 5.5 g/dL (6.4-8.9)
[2017-02-14 06:32] LABS: Troponin I 0.07 ng/mL (<0.04)
[2017-02-14] MEDS: Omeprazole CAP* 20 MG PO SCH (06:34)
--- NOTE | 2017-02-14 08:37 | PN ---
Subjective - Subjective Reason for Note: Progress Note History: His fever broke last night. He no longer has tachypnea at rest and he is feeling much improved. He has no chest pain, palpitations. He has no adverse effects from the levofloxacin. His appetite is good and his diabetes is coming under control Active Problems: Active Problems Fever (Acute) R50.9 Tachypnea (Acute) R06.82 Troponin I above reference range (Acute) R74.8 Urinary tract infection (Acute) Aortic regurgitation (Chronic) I35.1 Coronary arteriosclerosis (Chronic) I25.10 Essential hypertension (Chronic) I10 History of bladder stone (Chronic) Z87.448 Hx of CABG (Chronic) Mitral regurgitation (Chronic) Obesity (BMI 35.0-39.9 without comorbidity) (Chronic) E66.9 Type 2 diabetes mellitus (Chronic) Current Medications: Current Medications Acetaminophen (Tylenol Tab*) 650 mg PO Q6H PRN PRN Reason: FEVER/PAIN Last Admin: 02/13/17 22:21 Dose: 650 mg Albuterol (Ventolin 2.5 Mg/3 Ml Neb.Holly*) 2.5 mg INH Q2H PRN PRN Reason: SOB/WHEEZING Aspirin (Aspirin Ec Low Dose*) 81 mg PO DAILY [facility] Last Admin: 02/13/17 08:16 Dose: 81 mg Atorvastatin Calcium (Lipitor*) 20 mg PO 1700 [facility] Last Admin: 02/13/17 16:56 Dose: 20 mg Levofloxacin/Dextrose (Levaquin 750 Mg Ivpremix(*)) 750 mg in 150 mls @ 100 mls /hr IVPB Q48H [facility] Insulin Glargine (Lantus(*)) 36 units SUBCUT 2100 [facility] Stop: 02/14/17 20:00 Last Admin: 02/13/17 22:18 Dose: 36 units Insulin Human Lispro (Humalog*) 0 units SUBCUT AC ELIO PRN Reason: Protocol Last Admin: 02/13/17 18:17 Dose: 1 units Insulin Human Lispro (Humalog*) 0 units SUBCUT ACHS [facility] PRN Reason: Protocol Last Admin: 02/13/17 21:19 Dose: 3 units Iodixanol (Visipaque* 320 (Contrast)) 92 ml IV ONCE [facility] Stop: 02/15/17 23:59 Last Admin: 02/13/17 11:49 Dose: 92 ml Melatonin (Melatonin (Nf)) 3 mg PO BEDTIME PRN; Protocol PRN Reason: Sleep Metoprolol Succinate (Toprol Xl Tab*) 100 mg PO BID [facility] Last Admin: 02/13/17 21:19 Dose: 100 mg Mometasone Furoate/Formoterol Fumar (Dulera 200/5 Mdi*) 2 puff INH BID [facility] Last Admin: 02/13/17 19:15 Dose: Not Given Nicotine (Nicotine Inhaler*) 10 mg INH Q2H PRN PRN Reason: CRAVING Omeprazole (Prilosec Cap*) 20 mg PO DAILY@0600 [facility] Last Admin: 02/14/17 06:34 Dose: 20 mg Ondansetron HCl (Zofran Inj*) 4 mg IV Q6H PRN PRN Reason: NAUSEA Tiotropium [place] (Spiriva Cap.Inh*) 1 cap INH DAILY [facility] Last Admin: 02/13/17 10:39 Dose: 1 cap Home Medications: Home Medications Medication Instructions Recorded Confirmed Type Aspirin [Aspir-Low] 81 mg PO DAILY 05/07/13 02/12/17 History Metformin HCl 500 mg PO BID 05/07/13 02/12/17 History Metoprolol Succinate [Metoprolol 100 mg PO BID 09/04/13 02/12/17 History Succinate ER] Simvastatin TAB(NF) [Zocor(NF)] 40 mg PO 1700 09/04/13 02/12/17 History Allergies: Allergies Allergy/AdvReac Type Severity Reaction Status Date / Time Heparin Allergy Severe See Comment Verified 02/12/17 19:22 Objective - Vital Signs Vital Signs: Vital Signs 02/13/17 02/13/17 02/13/17 10:42 14:00 15:00 Temperature 100.4 F 98.9 F Pulse Rate 87 84 81 Respiratory 16 22 28 Rate Blood Pressure 135/83 161/78 (mmHg) O2 Sat by Pulse 95 99 98 Oximetry 02/13/17 02/14/17 02/14/17 19:11 00:12 01:06 Temperature 99.9 F 99.5 F 98.6 F Pulse Rate 83 80 Respiratory 28 16 Rate Blood Pressure 151/76 146/77 (mmHg) O2 Sat by Pulse 98 97 Oximetry 02/14/17 02/14/17 03:21 07:28 Temperature 98.3 F 98.4 F Pulse Rate 78 72 Respiratory 16 16 Rate Blood Pressure 143/82 143/87 (mmHg) O2 Sat by Pulse 99 97 Oximetry - Intake and Output Intake and Output: Intake & Output 02/11/17 02/12/17 02/13/17 02/14/17 11:59 11:59 11:59 11:59 Intake Total 787 2384 Output Total 1115 Balance 787 1269 Weight 252 lb 254 lb 4.8 oz Intake: IV Fluids 497 Normal Saline 281 IVPB 50 154 Magnesium 50 Oral 240 2230 Output: Urine 1115 Other: Estimated Void Medium Large # Bowel Movements 0 0 # Voids 0 1 ADLs: Meal Record Start: 02/12/17 23: 56 Freq: DAILY@0900,1400,1800 Status: Active Document 02/13/17 09:00 [id number] (Rec: 02/13/17 09:47 [id number] TELE-C01) Document 02/13/17 14:00 [id number] (Rec: 02/13/17 14:40 [id number] [id number]) Document 02/13/17 18:00 [id number] (Rec: 02/13/17 21:14 [id number] [id number]) Intake and Output Start: 02/12/17 23: 56 Freq: DAILY@0600,1400,2200 Status: Active Document 02/13/17 06:00 [id number] (Rec: 02/13/17 06:09 [id number] TELE-C33) Document 02/13/17 14:00 [id number] (Rec: 02/13/17 14:40 [id number] TELE-C01) Document 02/13/17 16:13 [id number] (Rec: 02/13/17 16:13 [id number] TELE-C07) Document 02/13/17 21:28 [id number] (Rec: 02/13/17 21:28 [id number] TELE-C01) Document 02/13/17 22:00 [id number] (Rec: 02/13/17 22:32 [id number] TELE-C10) Document 02/14/17 06:00 [id number] (Rec: 02/14/17 06:13 [id number] [id number]) - Physical Exam General Physical Exam Comment: No longer plethoric. He is in no distress. General: No Cyanosis, No Anemia, No Jaundice, No Clubbing Lungs and Chest: Yes: Chest Expansion Full, Chest Expansion Symetrica, Percussion Note Resonant, Vessicular Breath Sounds. No: Crackles, Wheezes Heart Rate and Rhythm: Regular Additional Cardiovascular: Yes: Normal Heart Sounds, Heart Murmur, Pedal Edema - trace Abdominal Exam: Yes: Soft, Bowel Sounds Present. No: Distention, Abdominal Tenderness - Extremities Cranial Nerves II-XII Intact: Yes Limbs: Normal Power, Normal Tone - Neuro Orientation: A/O x3 Speech: Normal Results - Results Lab Results: Laboratory Results - last 24 hr 02/13/17 02/13/17 02/13/17 11:25 16:46 21:00 WBC RBC Hgb Hct MCV MCH MCHC RDW Plt Count MPV Neut % (Auto) Lymph % (Auto) [place] % (Auto) Eos % (Auto) Baso % (Auto) Absolute Neuts (auto) Absolute Lymphs (auto) Absolute Monos (auto) Absolute Eos (auto) Absolute Basos (auto) Absolute Nucleated RBC Nucleated RBC % Sodium Potassium Chloride Carbon Dioxide Anion Gap BUN Creatinine Est GFR ( Amer) Est GFR (Non- Amer) BUN/Creatinine Ratio Glucose POC Glucose (mg/dL) 223 H 189 H 174 H Calcium Total Bilirubin Direct Bilirubin Indirect Bilirubin AST ALT Alkaline Phosphatase Troponin I C-Reactive Protein B-Natriuretic Peptide Total Protein Albumin Globulin Albumin/Globulin Ratio 02/14/17 02/14/17 02/14/17 05:40 05:40 05:40 WBC 7.6 RBC 4.25 Hgb 13.9 L Hct 42 MCV 100 H MCH 33 H MCHC 33 RDW 14 Plt Count 109 L MPV 8 Neut % (Auto) 76.7 Lymph % (Auto) 8.2 L [place] % (Auto) 14.3 H Eos % (Auto) 0.6 Baso % (Auto) 0.2 Absolute Neuts (auto) 5.8 Absolute Lymphs (auto) 0.6 L Absolute Monos (auto) 1.1 H Absolute Eos (auto) 0 Absolute Basos (auto) 0 Absolute Nucleated RBC 0 Nucleated RBC % 0.1 Sodium 134 Potassium 4.3 Chloride 103 Carbon Dioxide 25 Anion Gap 6 BUN 18 Creatinine 1.00 Est GFR ( Amer) 94.2 Est GFR (Non-Af Amer) 73.2 BUN/Creatinine Ratio 18.0 Glucose 163 H POC Glucose (mg/dL) Calcium 8.4 L Total Bilirubin 0.50 Direct Bilirubin 0.20 H Indirect Bilirubin 0.3 AST 26 ALT 21 Alkaline Phosphatase 43 Troponin I 0.07 H* C-Reactive Protein 146.13 H B-Natriuretic Peptide 234 H Total Protein 5.5 L Albumin 3.0 L Globulin 2.5 Albumin/Globulin Ratio 1.2 02/14/17 08:07 WBC RBC Hgb Hct MCV MCH MCHC RDW Plt Count MPV Neut % (Auto) Lymph % (Auto) [place] % (Auto) Eos % (Auto) Baso % (Auto) Absolute Neuts (auto) Absolute Lymphs (auto) Absolute Monos (auto) Absolute Eos (auto) Absolute Basos (auto) Absolute Nucleated RBC Nucleated RBC % Sodium Potassium Chloride Carbon Dioxide Anion Gap BUN Creatinine Est GFR ( Amer) Est GFR (Non-Af Amer) BUN/Creatinine Ratio Glucose POC Glucose (mg/dL) 162 H Calcium Total Bilirubin Direct Bilirubin Indirect Bilirubin AST ALT Alkaline Phosphatase Troponin I C-Reactive Protein B-Natriuretic Peptide Total Protein Albumin Globulin Albumin/Globulin Ratio Radiology Results: Patient Name: FÁTIMA DECKER Medical Record#: [id number] Ordering Physician: Dhiraj Mcgregor MD Acct.#: [id number] : 1945 Age: 72 Sex: M Location: [address] [place] [address]/[employer] Exam Date: 02/13/17901 ADM Status: ADM Balaji Order Information: CTA CHEST Accession Number: [id number] CPT: 14647 Indication: Pulmonary embolism, pneumonia. Contrast: Contrast volume needle gauge CTA of the chest was performed after IV contrast administration. Coronal and sagittal reconstructed images were obtained. Comparison previous exam dated November 04, 2009. The pulmonary arterial tree is well opacified. There are no filling defects present to suggest pulmonary embolus. The inferior thyroid lobes are unremarkable. No mediastinal or hilar adenopathy is noted. The heart demonstrates no pericardial effusion. Calcified lymph nodes are noted in the subcarinal area. The trachea and major bronchi demonstrates no evidence of alveolar consolidation or focal nodules. The axilla demonstrates no evidence of abnormal masses. The visualized abdominal organs demonstrates hepatic steatosis. IMPRESSION: NO EVIDENCE OF PULMONARY EMBOLUS IS NOTED. CALCIFIED LYMPH NODES IN THE SUBCARINAL AREA. NO EVIDENCE OF ALVEOLAR CONSOLIDATION IS NOTED. HEPATIC STEATOSIS IS PRESENT. <Electronically signed by Siobhan Solorio MD in [place]> 02/13/17 1156 Dictated By: Siobhan Solorio MD Dictated Date/Time: 02/13/17 1156 Transcribed Date/Time: 02/13/17 1154 Copy to: CC:Dhiraj Mcgregor MD; Brandon Sanchez MD Imaging - [facility] Imaging - [facility] Imaging - [facility] [address] [place], [place] [id number] [place] [id number] [place] [id number] ph [phone]) ph ([phone]) ph ([phone]) 1 of 1 Other Results/Reports: Transthoracic echocardiogram Conclusions Mild concentric left ventricular hypertrophy is observed. Left ventricular systolic function is at the lower limits of normal. The estimated ejection fraction is 50%. There is an E to A reversal in the mitral valve flow pattern suggestive of diastolic dysfunction. The right ventricle wall thickness is mildly increased. The right ventricular global systolic function is mildly reduced. There is mild aortic regurgitation due AV sclerosis. There is a trace of mitral regurgitation. There is trace to mild tricuspid regurgitation. There is evidence of mild pulmonary hypertension: 35 mHg. Compared with prior echo of 07/17/16, prior LVH moderate, prior EF 50-55%, all valve insufficiency has improved, prior AI mild t mod, prior MR mild to mod, prior TR mild to moderate. Aorta diameter previously 3.9 cm. Assessment - Problem List Assessment: Patient Problems Fever (Acute) Tachypnea (Acute) Troponin I above reference range (Acute) Urinary tract infection (Acute) Aortic regurgitation (Chronic) Coronary arteriosclerosis (Chronic) Essential hypertension (Chronic) History of bladder stone (Chronic) Hx of CABG (Chronic) Mitral regurgitation (Chronic) Obesity (BMI 35.0-39.9 without comorbidity) (Chronic) Type 2 diabetes mellitus (Chronic) Plan: Fever (Acute)Urinary tract infection (Acute) This is improving. His clinical signs are improved and he is no not febrile. His %neutrophils are coming down. The CRP is a little higher. I spoke to microbiology - he has greater than 100 ,000 cfu of predominantly proteus. There may be other colonies there as well. Sensitivities tomorrow - but bioassay suggests sensitivity (i.e. the patient is improving). Tachypnea (Acute)Troponin I above reference range (Acute) His transthoracic echocardiogram is unchanged from June and the CTA chest showed neither PE nor pneumonia. His respiratory rate is coming down as the fever improves. There may be some degree of CHF as reflected in the BNP (which came down a little), but this is not otherwise apparent clinically. I will not give him diuretics today as I think that any negative inotropic effect from the infection should improve. Aortic regurgitation (Chronic) Mitral regurgitation (Chronic) unchanged Coronary arteriosclerosis (Chronic)Hx of CABG (Chronic) stable Essential hypertension (Chronic) stable History of bladder stone (Chronic) I will check an US kidneys and bladder. Obesity (BMI 35.0-39.9 without comorbidity) (Chronic) Type 2 diabetes mellitus (Chronic) I will start to cut back on insulin therapy as he is likely to become more sensitive to insulin and be at risk of hypoglycemia. I spoke to the patient, his son Grayson who was in the room and his Steph on the phone.
[2017-02-14] MEDS ORDERED: Insulin GLARGINE(*) 1 UNITS UNIT SUBCUT SCH (08:38)
[2017-02-14] MEDS: Insulin LISPRO* 1 UNITS UNIT SUBCUT SCH ×7 (08:43→20:39)
[2017-02-14] MEDS: Metoprolol Succinate XL TAB* 100 MG PO SCH ×2 (08:44→20:33)
[2017-02-14] MEDS: Aspirin EC Low Dose* 81 MG TAB.EC PO SCH (08:44)
[2017-02-14] MEDS: Tiotropium CAP.INH* CAP.INH/18 MCG INH SCH (09:14)
[2017-02-14] MEDS: Mometasone/Formoter 200/5 MDI INH SCH ×2 (09:14→20:19)
--- NOTE | 2017-02-14 14:58 | RAD ---
Indication: History of urinary tract infection. Real-time sonography of the kidneys was performed. The right kidney measures 13.3 x 6.4 x 6.6 cm. Upper pole caliectasis is noted. A cyst is noted in the upper pole of the right kidney measuring 10 x 11 x 10 mm. The left kidney measures 12.1 x 4.9 x 5.1 cm. No hydronephrosis of either kidney is noted. Evaluation of the urinary bladder demonstrates a post void residual of 50 mL. Bladder wall measures 2 mm thickness. No bladder wall masses are noted. Bilateral ureteral jets are noted. The prostate measures 28 mL which is enlarged. IMPRESSION: Cortical cyst in the upper pole of the right kidney with upper pole caliectasis without jean-claude hydronephrosis. Post void residual of the urinary bladder of 50 mL with a prostate volume of 28 mL.
[2017-02-14] MEDS: Atorvastatin* 20 MG TAB PO SCH (17:35)
[2017-02-14] MEDS: metFORMIN* 500 MG TAB PO SCH (17:35)
[2017-02-14] MEDS ORDERED: Levofloxacin 750 MG IVPREMIX(* 750 MG/150 ML BAG IVPB SCH (23:00)
[2017-02-15] MEDS: Omeprazole CAP* 20 MG PO SCH (05:12)
[2017-02-15 06:19] LABS: Hematocrit 44 % (42-52); Hemoglobin 14.7 g/dl (14.0-18.0); Mean Corpuscular HGB Conc 33 g/dl (31-36); Mean Corpuscular Hemoglobin 33 pg (27-31); Mean Corpuscular Volume 100 fL (80-94); Mean Platelet Volume 9 um3 (7.4-10.4); Red Blood Count 4.42 10^6/ul (4.0-5.4); Red Cell Distribution Width 14 % (10.5-15); White Blood Count 6.7 10^3/ul (3.5-10.8)
[2017-02-15 06:31] LABS: BUN/Creatinine Ratio 21.1 (8-20); C Reactive Protein 103.27 mg/L (< 5.00); Calcium 8.7 mg/dL (8.6-10.3); EGFR African American 99.9 (>60); EGFR Non-African American 77.7 (>60)
[2017-02-15] MEDS: Mometasone/Formoter 200/5 MDI INH SCH (07:48)
[2017-02-15] MEDS: Tiotropium CAP.INH* CAP.INH/18 MCG INH SCH (07:49)
[2017-02-15 08:23] VITALS: BP 141/92
[2017-02-15] MEDS: Insulin LISPRO* 1 UNITS UNIT SUBCUT SCH ×2 (08:49→08:50)
[2017-02-15] MEDS: Metoprolol Succinate XL TAB* 100 MG PO SCH (08:50)
[2017-02-15] MEDS: Aspirin EC Low Dose* 81 MG TAB.EC PO SCH (08:50)
[2017-02-15] MEDS: metFORMIN* 500 MG TAB PO SCH (08:50)
--- NOTE | 2017-02-15 08:52 | PN ---
Subjective - Subjective Reason for Note: Progress Note History: He is afebrile, has no urinary symptoms. He has no pain. His glucose levels are under control. He no longer has dyspnea or tachypnea Active Problems: Active Problems Fever (Acute) R50.9 Sepsis (Acute) Tachypnea (Acute) R06.82 Troponin I above reference range (Acute) R74.8 Urinary tract infection (Acute) Aortic regurgitation (Chronic) I35.1 Coronary arteriosclerosis (Chronic) I25.10 Essential hypertension (Chronic) I10 History of bladder stone (Chronic) Z87.448 Hx of CABG (Chronic) Mitral regurgitation (Chronic) Obesity (BMI 35.0-39.9 without comorbidity) (Chronic) E66.9 Type 2 diabetes mellitus (Chronic) Current Medications: Current Medications Acetaminophen (Tylenol Tab*) 650 mg PO Q6H PRN PRN Reason: FEVER/PAIN Last Admin: 02/13/17 22:21 Dose: 650 mg Albuterol (Ventolin 2.5 Mg/3 Ml Neb.Holly*) 2.5 mg INH Q2H PRN PRN Reason: SOB/WHEEZING Aspirin (Aspirin Ec Low Dose*) 81 mg PO DAILY [facility] Last Admin: 02/14/17 08:44 Dose: 81 mg Atorvastatin Calcium (Lipitor*) 20 mg PO 1700 [facility] Last Admin: 02/14/17 17:35 Dose: 20 mg Levofloxacin/Dextrose (Levaquin 750 Mg Ivpremix(*)) 750 mg in 150 mls @ 100 mls /hr IVPB Q24H [facility] Last Admin: 02/14/17 23:08 Dose: 100 mls/hr Insulin Human Lispro (Humalog*) 0 units SUBCUT AC ELIO PRN Reason: Protocol Last Admin: 02/14/17 17:35 Dose: 3 units Insulin Human Lispro (Humalog*) 0 units SUBCUT ACHS [facility] PRN Reason: Protocol Last Admin: 02/14/17 20:39 Dose: 3 units Iodixanol (Visipaque* 320 (Contrast)) 92 ml IV ONCE [facility] Stop: 02/15/17 23:59 Last Admin: 02/13/17 11:49 Dose: 92 ml Melatonin (Melatonin (Nf)) 3 mg PO BEDTIME PRN; Protocol PRN Reason: Sleep Metformin HCl (Glucophage*) 500 mg PO 0800,1700 [facility] Last Admin: 02/14/17 17:35 Dose: 500 mg Metoprolol Succinate (Toprol Xl Tab*) 100 mg PO BID [facility] Last Admin: 02/14/17 20:33 Dose: 100 mg Mometasone Furoate/Formoterol Fumar (Dulera 200/5 Mdi*) 2 puff INH BID [facility] Last Admin: 02/15/17 07:48 Dose: 2 puff Nicotine (Nicotine Inhaler*) 10 mg INH Q2H PRN PRN Reason: CRAVING Omeprazole (Prilosec Cap*) 20 mg PO DAILY@0600 [facility] Last Admin: 02/15/17 05:12 Dose: 20 mg Ondansetron HCl (Zofran Inj*) 4 mg IV Q6H PRN PRN Reason: NAUSEA Tiotropium [place] (Spiriva Cap.Inh*) 1 cap INH DAILY [facility] Last Admin: 02/15/17 07:49 Dose: 1 cap Home Medications: Home Medications Medication Instructions Recorded Confirmed Type Aspirin [Aspir-Low] 81 mg PO DAILY 05/07/13 02/12/17 History Metformin HCl 500 mg PO BID 05/07/13 02/12/17 History Metoprolol Succinate [Metoprolol 100 mg PO BID 09/04/13 02/12/17 History Succinate ER] Simvastatin TAB(NF) [Zocor 20 MG 40 mg PO 1700 09/04/13 02/12/17 History (NF)] Levofloxacin TAB* [Levaquin 750 MG 750 mg PO DAILY #7 tab 02/15/17 Rx TAB*] glipiZIDE TAB* [Glucotrol TAB*] 5 mg PO BID #60 tab 02/15/17 Rx Allergies: Allergies Allergy/AdvReac Type Severity Reaction Status Date / Time Heparin Allergy Severe See Comment Verified 02/12/17 19:22 Objective - Vital Signs Vital Signs: Vital Signs 02/14/17 02/14/17 02/14/17 12:01 15:32 20:00 Temperature 97.9 F 98.2 F Pulse Rate 64 70 Respiratory 16 22 18 Rate Blood Pressure 115/105 135/74 (mmHg) O2 Sat by Pulse 99 98 Oximetry 02/14/17 02/14/17 02/15/17 20:04 23:56 03:50 Temperature 98.3 F 98.4 F 97.5 F Pulse Rate 70 74 76 Respiratory 18 20 20 Rate Blood Pressure 152/80 158/91 173/95 (mmHg) O2 Sat by Pulse 96 97 97 Oximetry 02/15/17 02/15/17 02/15/17 05:03 07:21 07:48 Temperature 97.5 F Pulse Rate 69 66 Respiratory 18 16 Rate Blood Pressure 144/83 141/92 (mmHg) O2 Sat by Pulse 98 Oximetry - Intake and Output Intake and Output: Intake & Output 02/12/17 02/13/17 02/14/17 02/15/17 11:59 11:59 11:59 11:59 Intake Total 860 Output Total 1100 Balance -240 Weight 254 lb 12.8 oz Intake: IV Fluids 30 ABX - LEVAQUIN 30 IVPB 160 ABX - LEVAQUIN 160 Oral 670 Output: Urine 1100 Other: # Bowel Movements 0 ADLs: Meal Record Start: 02/12/17 23: 56 Freq: DAILY@0900,1400,1800 Status: Active Document 02/13/17 09:00 [id number] (Rec: 02/13/17 09:47 [id number] TELE-C01) Document 02/13/17 14:00 [id number] (Rec: 02/13/17 14:40 [id number] TELE-C01) Document 02/13/17 18:00 [id number] (Rec: 02/13/17 21:14 [id number] TELE-C01) Document 02/14/17 09:00 [id number] (Rec: 02/14/17 10:28 [id number] HOSP-C11) Document 02/14/17 13:35 [id number] (Rec: 02/14/17 13:38 [id number] HOSP-C11) Document 02/14/17 18:00 [id number] (Rec: 02/14/17 19:38 [id number] TELE-C10) Intake and Output Start: 02/12/17 23: 56 Freq: DAILY@0600,1400,2200 Status: Active Document 02/13/17 06:00 [id number] (Rec: 02/13/17 06:09 [id number] TELE-C33) Document 02/13/17 14:00 [id number] (Rec: 02/13/17 14:40 [id number] TELE-C01) Document 02/13/17 16:13 [id number] (Rec: 02/13/17 16:13 LBO0929 TELE-C07) Document 02/13/17 21:28 [id number] (Rec: 02/13/17 21:28 [id number] TELE-C01) Document 02/13/17 22:00 [id number] (Rec: 02/13/17 22:32 [id number] TELE-C10) Document 02/14/17 06:00 [id number] (Rec: 02/14/17 06:13 [id number] TELE-C10) Document 02/14/17 08:59 [id number] (Rec: 02/14/17 09:00 [id number] TELE-M23) Document 02/14/17 13:35 [id number] (Rec: 02/14/17 13:38 [id number] HOSP-C11) Document 02/14/17 21:01 [id number] (Rec: 02/14/17 21:01 [id number] TELE-L04) Document 02/14/17 22:00 [id number] (Rec: 02/14/17 23:24 [id number] TELE-C10) Document 02/15/17 05:54 [id number] (Rec: 02/15/17 05:55 [id number] TELE-C32) - Physical Exam General: No Cyanosis, No Anemia, No Jaundice, No Clubbing Lungs and Chest: Yes: Chest Expansion Full, Chest Expansion Symetrica, Percussion Note Resonant, Vessicular Breath Sounds. No: Crackles, Wheezes, Respiratory Distress, Use of Accessory Muscles Heart Rate and Rhythm: Regular JVP: Not Elevated Additional Cardiovascular: Yes: Normal Heart Sounds, Heart Murmur, Pedal Edema - trace Abdominal Exam: Yes: Soft, Bowel Sounds Present. No: Distention, Abdominal Mass , Hepatomegaly, Abdominal Tenderness, Guarding - Extremities Cranial Nerves II-XII Intact: Yes Limbs: Normal Power, Normal Tone, Normal Gait - Neuro Orientation: A/O x3 Speech: Normal Results - Results Lab Results: Laboratory Results - last 24 hr 02/14/17 02/14/17 02/14/17 11:41 16:36 20:08 WBC RBC Hgb Hct MCV MCH MCHC RDW Plt Count MPV Neut % (Auto) Lymph % (Auto) Gosper % (Auto) Eos % (Auto) Baso % (Auto) Absolute Neuts (auto) Absolute Lymphs (auto) Absolute Monos (auto) Absolute Eos (auto) Absolute Basos (auto) Absolute Nucleated RBC Nucleated RBC % Sodium Potassium Chloride Carbon Dioxide Anion Gap BUN Creatinine Est GFR ( Amer) Est GFR (Non-Af Amer) BUN/Creatinine Ratio Glucose POC Glucose (mg/dL) 155 H 154 H 164 H Calcium C-Reactive Protein 02/15/17 02/15/17 02/15/17 05:12 05:12 07:36 WBC 6.7 RBC 4.42 Hgb 14.7 Hct 44 MCV 100 H MCH 33 H MCHC 33 RDW 14 Plt Count 117 L MPV 9 Neut % (Auto) 71.1 Lymph % (Auto) 12.5 L Gosper % (Auto) 14.2 H Eos % (Auto) 1.9 Baso % (Auto) 0.3 Absolute Neuts (auto) 4.8 Absolute Lymphs (auto) 0.8 L Absolute Monos (auto) 1.0 H Absolute Eos (auto) 0.1 Absolute Basos (auto) 0 Absolute Nucleated RBC 0 Nucleated RBC % 0.1 Sodium 134 Potassium 4.0 Chloride 101 Carbon Dioxide 25 Anion Gap 8 BUN 20 Creatinine 0.95 Est GFR ( Amer) 99.9 Est GFR (Non-Af Amer) 77.7 BUN/Creatinine Ratio 21.1 H Glucose 197 H POC Glucose (mg/dL) 160 H Calcium 8.7 C-Reactive Protein 103.27 H Radiology Results: Patient Name: FÁTIMA DECKER Medical Record#: [id number] Ordering Physician: Dhiraj Mcgregor MD Acct.#: [id number] : 1945 Age: 72 Sex: M Location: [address] [place] [address]/TELEMETRY Exam Date: 02/14/17837 ADM Status: ADM IN Order Information: US RENAL AND BLADDER Accession Number: [id number] CPT: 58228 Indication: History of urinary tract infection. Real-time sonography of the kidneys was performed. The right kidney measures 13.3 x 6.4 x 6.6 cm. Upper pole caliectasis is noted. A cyst is noted in the upper pole of the right kidney measuring 10 x 11 x 10 mm. The left kidney measures 12.1 x 4.9 x 5.1 cm. No hydronephrosis of either kidney is noted. Evaluation of the urinary bladder demonstrates a post void residual of 50 mL. Bladder wall measures 2 mm thickness. No bladder wall masses are noted. Bilateral ureteral jets are noted. The prostate measures 28 mL which is enlarged. IMPRESSION: Cortical cyst in the upper pole of the right kidney with upper pole caliectasis without jean-claude hydronephrosis. Post void residual of the urinary bladder of 50 mL with a prostate volume of 28 mL. <Electronically signed by Siobhan Solorio MD in OV> 02/14/171453 Dictated By: Siobhan Solorio MD Dictated Date/Time: 02/14/171453 Transcribed Date/Time: 02/14/171451 Copy to: CC:Dhiraj Mcgregor MD; Brandon Sanchez MD Imaging - [facility] Imaging - [facility] Imaging - [facility] [address] [facility] [address] [place] [address] ph ([phone]) ph ([phone]) ph ([phone]) 1 of 1 Other Results/Reports: RUN DATE: 02/15/17 [facility] LAB LIVE PAGE 1 RUN TIME: [address] [place] [id number] Specimen Inquiry Name: FÁTIMA DECKRE : [address]: Dhiraj Mcgregor MD Acct: [id number] Unit: [id number] AGE: 72 Location: [place] [address] Re02/14/17 SEX: M Status: ADM IN SPEC: [id number] ELVIS: 02/12/17-[address]: Edvin Hardy MD REQ: [id number] RECD: 02/12/17 _ STATUS: RES OTHR DR: Dhiraj Mcgregor MD SOURCE: BLOOD,VENO SPDESC: ORDERED: Blood Cult COMMENTS: Patient is On Antibiotics? NO Verbal to [id number] by [id number] at 1630 on 02/13/17. Results read back accurately. IDENTIFICATION OF PROTEUS MIRABILIS: Verbal to [id number] (4S) by [id number] at 0800 on 02/14/17. Results read back accurately. Procedure Result Reported Site Aerobic Culture Bottle Final 02/15/17- 0702 ML Aerobic Bottle Gram Stain Gram Negative Bacilli Organism 1 PROTEUS MIRABILIS 1. PROTEUS MIRABILIS M.I.C. RX Ampicillin <=2 S Cefazolin <=4 S Cefepime <=1 S Ceftriaxone <=1 S Ciprofloxacin <=0.25 S Gentamicin 2 S Levofloxacin <=0.12 S Meropenem <=0.25 S Nitrofurantoin 128 R Tetracycline >=16 R Pipercillin/Tazobactam <=4 S Trimethoprim/Sulfamethoxazole <=20 S Amoxicillin/Clavulanic Acid <=2 S Aztreonam <=1 S CONTINUED ON NEXT PAGE * ML = Testing performed at Main Lab DEPARTMENT OF PATHOLOGY, [address] [place] [address] Deon Shook M.D. Director [facility] # [id number] Assessment - Problem List Assessment: Patient Problems Fever (Acute) Sepsis (Acute) Tachypnea (Acute) Troponin I above reference range (Acute) Urinary tract infection (Acute) Aortic regurgitation (Chronic) Coronary arteriosclerosis (Chronic) Essential hypertension (Chronic) History of bladder stone (Chronic) Hx of CABG (Chronic) Mitral regurgitation (Chronic) Obesity (BMI 35.0-39.9 without comorbidity) (Chronic) Type 2 diabetes mellitus (Chronic) Plan: Urinary tract infection (Acute)Fever (Acute)Sepsis (Acute)Tachypnea (Acute) He fulfilled sepsis criteria, this has resolved. He has responded well to levoflaxicin. Proteus mirabilis is sensitive to levofloxacin - I will send him home with this antibacterial. I have instructed him to drink water+++ Troponin I above reference range (Acute) resolved Aortic regurgitation (Chronic)Mitral regurgitation (Chronic) secondary diagnoses Coronary arteriosclerosis (Chronic) secondary diagnosis Essential hypertension (Chronic) controlled History of bladder stone (Chronic) his US kidney/bladder were normal - no hydronephrosis Hx of CABG (Chronic) Obesity (BMI 35.0-39.9 without comorbidity) (Chronic) Type 2 diabetes mellitus (Chronic) I have discharged him on glipizide 5 mg twice daily and metformin. He will check his FS twice daily. If this is < 100 mg/dl he will cut the glipizide in half to 2.5 mg twice daily. I will discontinue when he is no longer insulin resistant. I discussed the above with the patient and his Steph in person. He is ready for discharge.
== END 2017-02-15 10:45 | disposition home or self-care (01) | DRG 872 ==
LOC: ED 20:06 → MEDTELE 23:43 → OBSVTOIN 02-14 11:18
PROVIDERS: ADMIT Hospitalist; ATTEND Internal Medicine
DX: A41.9 Sepsis, unspecified organism (principal); I27.2 Other secondary pulmonary hypertension; N39.0 Urinary tract infection, site not specified; E11.9 Type 2 diabetes mellitus without complications; I08.3 Combined rheumatic disorders of mitral, aortic and tricuspid valves; I10 Essential (primary) hypertension; E78.5 Hyperlipidemia, unspecified; B96.4 Proteus (mirabilis) (morganii) as the cause of diseases classified elsewhere; I25.10 Atherosclerotic heart disease of native coronary artery without angina pectoris; R74.8 Abnormal levels of other serum enzymes; R09.82 Postnasal drip; R40.2412 Glasgow coma scale score 13-15, at arrival to emergency department; I77.819 Aortic ectasia, unspecified site; R06.82 Tachypnea, not elsewhere classified; E66.9 Obesity, unspecified; Z87.442 Personal history of urinary calculi; I25.2 Old myocardial infarction; Z95.1 Presence of aortocoronary bypass graft; Z88.8 Allergy status to other drugs, medicaments and biological substances; Z98.42 Cataract extraction status, left eye; Z98.41 Cataract extraction status, right eye; Z82.49 Family history of ischemic heart disease and other diseases of the circulatory system; Z83.3 Family history of diabetes mellitus; Z82.0 Family history of epilepsy and other diseases of the nervous system; Z82.3 Family history of stroke; Z72.89 Other problems related to lifestyle; Z68.36 Body mass index [BMI] 36.0-36.9, adult
CPT/HCPCS: 36415; 71010; 71275; 76770; 80048; 80053; 80076; 81003; 81015; 82270; 82550; 82553; 83036; 83605; 83690; 83735; 83880; 84443; 84484; 85025; 85610; 85730; 86140; 87040; 87077; 87086; 87186; 87205; 93005; 93306; 94640; 94760; 99213; 99406; A9270-GY; G0378; G0463; Q9967

== ENCOUNTER 2018-08-20 16:42 | Observation (INO) | payer MEDICARE ==
[2018-08-20 17:41] LABS: ABS Basophils 0 10^3/ul (0-0.2); ABS Eosinophils 0 10^3/ul (0-0.6); ABS Lymphocytes 0.5 10^3/ul (1.0-4.8); ABS Monocytes 0.9 10^3/ul (0-0.8); ABS Nucleated RBC 0 10^3/ul; Eosinophil % 0.2 %; Hematocrit 47 % (42-52); Hemoglobin 15.7 g/dl (14.0-18.0); Lymphocyte % 5.2 %; Mean Corpuscular HGB Conc 34 g/dl (31-36); Mean Corpuscular Hemoglobin 33 pg (27-31); Mean Corpuscular Volume 98 fL (80-94); Mean Platelet Volume 7.9 fL (7.4-10.4); Nucleated Red Blood Cells % 0; Platelet Count 165 10^3/ul (150-450); Red Blood Count 4.78 10^6/ul (4.00-5.40); Red Cell Distribution Width 14 % (10.5-15); White Blood Count 10.5 10^3/ul (3.5-10.8)
[2018-08-20 17:50] LABS: Activated Partial Thrombo Time 34.2 seconds (26.0-36.3); INR 0.93 (0.77-1.02)
[2018-08-20] MEDS ORDERED: cefTRIAXone(*) 2 GM in NS 0.9% 100 ML* 100 ML IVPB ONE (17:54)
[2018-08-20] MEDS ORDERED: Acetaminophen TAB* 325 MG PO ONE (17:54)
--- NOTE | 2018-08-20 18:01 | ED ---
GI/ HPI - HPI Summary HPI Summary: This patient is a 73 year old male [facility] accompanied by with a chief complaint of possible urosepsis since waking up this morning. Patient has a hx of multiple UTIs and has become septic multiple times as a result. This morning, the patient woke up with a low grade fever, uncontrolled urination , and mild respiratory distress, which were all symptoms indicative of previous urosepsis cases. Patient took Bactrim since 1100 to alleviate symptoms slightly. Patient met and spoke with Dr. Baez, who oversaw patient in the ED in previous urosepsis case, and was referred to the ED. The pain is rated 0/10 in severity. Symptoms aggravated by nothing. Symptoms alleviated by nothing. Patient additionally reports lightheadedness. - History of Current Complaint Chief Complaint: EDFever Time Seen by Provider: 08/20/18 17:29 Stated Complaint: BLADDER INFECTION Hx Obtained From: Patient Onset/Duration: Started Hours Ago, Still Present Timing: Constant Severity: Mild Current Severity: Mild Pain Intensity: 0 Location of Pain: None Associated Signs and Symptoms: Positive: Other: - lightheadedness, uncontrolled urination, fever, SOB Aggravating Factor(s): Nothing Alleviating Factor(s): Nothing - Additional Pertinent History Primary Care Physician: [id number] - Allergy/Home Medications Allergies/Adverse Reactions: Allergies Allergy/AdvReac Type Severity Reaction Status Date / Time heparin Allergy Severe Unknown Verified 08/20/18 17:09 Reaction Details Home Medications: Home Medications Allopurinol DAILY 08/20/18 [History] PMH/Surg Hx/FS Hx/Imm Hx Previously Healthy: No Endocrine/Hematology History: Reports: Hx Diabetes - TYPE 2-ON ORAL MEDICATION Denies: Hx Thyroid Disease, Hx Anemia Cardiovascular History: Reports: Hx Coronary Artery Disease - TRIPLE BYPASS, Hx Hypercholesterolemia, Hx Hypertension - ON MEDICATION, Other Cardiovascular Problems/Disorders - THALLIUM STRESS TEST/CABG 2009 Respiratory History: Reports: Other Respiratory Problems/Disorders - CHRONIC POST NASAL DRIP Denies: Hx Asthma GI History: Denies: Hx Jaundice, Hx Ulcer, Other GI Disorders History: Reports: Hx Kidney Stones - bladder stones and had surgery for it, Other Problems/Disorders - frequent urination, UTIs Musculoskeletal History: Denies: Other Musculoskeletal History Sensory History: Reports: Hx Cataracts - SKY, Hx Contacts or Glasses - GLASSES Denies: Hx Hearing Aid Opthamlomology History: Reports: Hx Cataracts - SKY, Hx Contacts or Glasses - GLASSES Neurological History: Denies: Other Neuro Impairments/Disorders - Surgical History Surgery Procedure, Year, and Place: CABG-2009 [facility] [place]. BILAT. CATARACTS [facility]1999 [place], [place] & 2010 [facility]. 09/17/13, BLADDER STONES, [facility] Hx Anesthesia Reactions: No Infectious Disease History: No Infectious Disease History: Denies: Hx Clostridium Difficile, Hx Hepatitis, Hx Human Immunodeficiency Virus (HIV), Hx of Known/Suspected MRSA, Hx Shingles, Hx Tuberculosis, Hx Known/ Suspected VRE, Hx Known/Suspected VRSA, History Other Infectious Disease, Traveled Outside the [place] in Last 30 Days - Family History Known Family History: Positive: Hypertension, Other - CVA - Social History Alcohol Use: None Alcohol Amount: 2 PER DAY Hx Substance Use: No Substance Use Type: Reports: None Hx Tobacco Use: No Smoking Status (MU): Never Smoked Tobacco Review of Systems Positive: Fever Positive: Shortness Of Breath Positive: incontinence Neurological: Other - lightheadedness All Other Systems Reviewed And Are Negative: Yes Physical Exam - Summary Physical Exam Summary: Appearance: Well appearing, no pain distress Skin: hot, dry, reflects adequate perfusion Head/face: normal Eyes: EOMI, ARTHUR ENT: mucous membranes moist Neck: supple, non-tender Respiratory: CTA, breath sounds present Cardiovascular: RRR, pulses symmetrical Abdomen: non-tender, soft Bowel Sounds: present Musculoskeletal: normal, strength/ROM intact, 2-3+ pitting edema in legs Neuro: normal, sensory motor intact, A&Ox3 Triage Information Reviewed: Yes Vital Signs On Initial Exam: Initial Vitals Temp Pulse Resp BP Pulse Ox 101.3 F 80 32 105/0 96 08/20/18 17:02 08/20/18 17:02 08/20/18 17:02 08/20/18 17:02 08/20/18 17:02 Vital Signs Reviewed: Yes Diagnostics - Vital Signs Vital Signs Temp Pulse Resp BP Pulse Ox 08/20/18 17:38 100.4 F 08/20/18 17:37 29 08/20/18 17:34 78 25 183/94 96 08/20/18 17:32 97 08/20/18 17:02 101.3 F 80 32 105/0 96 - Laboratory Lab Results: Lab Results 08/20/18 08/20/18 Range/Units 17:28 17:28 WBC 10.5 (3.5-10.8) 10^3/ul RBC 4.78 (4.00-5.40) 10^6/ul Hgb 15.7 (14.0-18.0) g/dl Hct 47 (42-52) % MCV 98 H (80-94) fL MCH 33 H (27-31) pg MCHC 34 (31-36) g/dl RDW 14 (10.5-15) % Plt Count 165 (150-450) 10^3/ul MPV 7.9 (7.4-10.4) fL Neut % (Auto) 85.5 % Lymph % (Auto) 5.2 % Stoddard % (Auto) 8.7 % Eos % (Auto) 0.2 % Baso % (Auto) 0.4 % Absolute Neuts (auto) 9.0 H (1.5-7.7) 10^3/ul Absolute Lymphs (auto) 0.5 L (1.0-4.8) 10^3/ul Absolute Monos (auto) 0.9 H (0-0.8) 10^3/ul Absolute Eos (auto) 0 (0-0.6) 10^3/ul Absolute Basos (auto) 0 (0-0.2) 10^3/ul Absolute Nucleated RBC 0 10^3/ul Nucleated RBC % 0 INR (Anticoag Therapy) 0.93 (0.77-1.02) APTT 34.2 (26.0-36.3) seconds Result Diagrams: 08/20/18 17:28 18 17:28 Lab Statement: Any lab studies that have been ordered have been reviewed, and results considered in the medical decision making process. - Radiology CXR Radiology Interpretation Completed By: Radiologist Summary of Radiographic Findings: CXR reveals, per radiologist, IMPRESSION: CARDIOMEGALY WITH PULMONARY VASCULAR CONGESTON. ED physician has reviewed this radiology report. - EKG 1740 Cardiac Rate: NL EKG Rhythm: Sinus Rhythm - 78 BPM Summary of EKG Findings: An EKG, taken 1740, reveals NSR (78 BPM), left axis deviation, nonspecific [facility] Course/Dx - Course Course Of Treatment: Patient with frequent UTIs and history remotely of bladder calculi. The urologist visited him here in the ER. Patient's lactate is mildly elevated and his ensure has gone up. He has a history of severe sepsis requiring hospitalization. IV Rocephin and fluids were started. WBC is normal. Patient will be admitted to the hospitalist team for further. Urologist plans for 6 weeks of outpatient Bactrim therapy and to do cystoscopy while on Bactrim. - Diagnoses Differential Diagnoses - Male: Prostatitis, Renal Colic, Sepsis, Urinary Tract Infection Provider Diagnoses: UTI (urinary tract infection), Sepsis - Physician Notifications Discussed Care Of Patient With: July Badillo - Hospitalist Time Discussed With Above Provider: 19:30 - We discussed patient care with Dr. Badillo (Hospitalist) at 1930 and they agreed to accept the patient Instructed by Provider To: Other - Dr. Baez from urology saw the patient in the ER Discharge - Sign-Out/Discharge Documenting (check all that apply): Patient Departure - Discharge Plan Condition: Fair Disposition: ADMITTED TO [facility] Referrals: Dhiraj Mcgregor MD [Primary Care Provider] - - Billing Disposition and Condition Condition: FAIR Disposition: Admitted to [facility] - Attestation Statements Document Initiated by iLsa: Yes Documenting Scribe: Chris Salmeron Provider For Whom Lisa is Documenting (Include Credential): Jeffry Schwarz MD Scribpankaj Attestation: Chris Camacho, scribed for Jeffry Schwarz MD on 08/20/18 at 1934. Scribe Documentation Reviewed: Yes Provider Attestation: The documentation as recorded by the Chris russell accurately reflects the service I personally performed and the decisions made by me, Jeffry Schwarz MD Status of Scribpankaj Document: Viewed
[2018-08-20 18:02] LABS: Albumin 4.4 g/dL (3.2-5.2); Albumin/Globulin Ratio 1.7 (1-3); BUN/Creatinine Ratio 18.5 (8-20); Calcium 9.3 mg/dL (8.6-10.3); EGFR Non-African American 66.8 (>60); Globulin 2.6 g/dL (2-4); Potassium 4.1 mmol/L (3.5-5.0); Total Bilirubin 0.7 mg/dL (0.2-1.0)
[2018-08-20] MEDS ORDERED: NS 0.9% 1000 ML* 1,000 ML IV ONE (18:02)
[2018-08-20 18:30] LABS: Urine Appearance Cloudy; Urine Bacteria 1+ (Absent); Urine Bilirubin Negative (Negative); Urine Blood 2+ (Negative); Urine Color Yellow; Urine Glucose Negative (Negative); Urine Ketones Negative (Negative); Urine Nitrite Negative (Negative); Urine Protein 2+(100 mg/dL) (Negative); Urine Red Blood Cell 3+(>10/hpf) (Absent); Urine Specific Gravity 1.013 (1.010-1.030); Urine Urobilinogen Negative (Negative); Urine White Blood Cell 3+(>20/hpf) (Absent)
[2018-08-20] MEDS ORDERED: Albuterol/Ipratropium NEB.SOL* Albuterol 2.5 MG/Ipratropium 0.5 MG 3 ML INH PRN (20:25)
[2018-08-20] MEDS ORDERED: Ondansetron INJ* 2 MG/ML VIAL IV PRN (20:25)
[2018-08-20] MEDS ORDERED: Acetaminophen TAB* 325 MG PO PRN (20:28)
[2018-08-20] MEDS ORDERED: Dextrose 50% Syringe 50 ML* 25 GM/50 ML SYRINGE IV PUSH PRN (20:33)
--- NOTE | 2018-08-20 20:39 | ADMNOTE ---
Subjective Date of Service: 08/20/18 Interval History: code status full this is admission h/p hpi this is a 73 yr old wm with hx of bladder stone since 2016 was sent in by gu dr Pacheco to er due to fever and increased urination ( pt has not pain ). pt has spiked to 101.4. supposed to be started on bactrim ds one tab bid for one month ( just took one day of bactrim ) as per gu. his intial wbc wnl but lactic acid is 2.4. rocephin started from er. pt will be transferred to Dr Mcgregor's service in am phx type ii dm cad s/p cabg 3 v no stents placed afterwards will see cardio dr campuzano for regular checkup very soon brief a fib after cabg 10/2009 complicated by marcos' s syndrome morbid obesity salom[place] on cpap 4-5 compliant prob copd htn macrocytosis due to hx of use etoh low dose every night ( was taking 1-2 glasses of wine daily but cut down to 3-4 beers per week ) hx of a large urinary bladder stone f/u with Dr argueta hld ? bph not on flomax any more ? vit b12 def not on vit b12 anymore hx of gout pshx s/p colon polyp resection s/p b/l cataracts extraction with lense implants social hx no cig now etoh on 3-4 beers per week no ivda walks indep lives with fhx both parents + htn Family History: Unchanged from Admission Review of Systems - Measurements Intake and Output: Intake and Output Last 24 Hours 08/18/18 08/19/18 08/20/18 08/21/18 06:59 06:59 06:59 06:59 Weight 250 lb - Review of Systems General Comments: pertinent as per hpi Objective Active Medications: Acetaminophen (Tylenol Tab*) 650 mg PO Q6H PRN PRN Reason: FEVER/PAIN Albuterol/Ipratropium (Duoneb (Albuterol 2.5 Mg/Ipratropium 0.5 Mg)) 1 neb INH [id number] AWAKE PRN PRN Reason: sob/wheexing Allopurinol (Zyloprim Tab*) 100 mg PO DAILY [facility] Aspirin (Aspirin Ec Tab*) 81 mg PO DAILY [facility] Dextrose (D50w Syringe 50 Ml*) 12.5 gm IV PUSH .FOR FS < 60 - SS PRN PRN Reason: FS < 60 Finasteride (Propecia (Nf)) 5 mg PO DAILY [facility] Glipizide (Glucotrol Tab*) 5 mg PO BID [facility] Heparin Sodium (Porcine) (Heparin Vial(*)) 5,000 units SUBCUT Q8HR [facility] Sodium Chloride (Ns 0.9% 1000 Ml*) 1,000 mls @ 125 mls/hr IV PER RATE [facility] Ceftriaxone Sodium 1 gm/ (Sodium Chloride) 50 mls @ 200 mls/hr IVPB Q24H [facility] Insulin Human Lispro (Humalog*) 0 units SUBCUT ACHS [facility]IO; Protocol Metformin HCl (Glucophage*) 500 mg PO BEDTIME [facility] Metoprolol Tartrate (Lopressor Tab*) 100 mg PO BID [facility] Ondansetron HCl (Zofran Inj*) 4 mg IV Q6H PRN PRN Reason: NAUSEA/VOMITING Ramipril (Altace Cap*) 10 mg PO DAILY [facility] Simvastatin (Zocor(Nf)) 40 mg PO 1700 [facility] Vital Signs - 8 hr 08/20/18 08/20/18 08/20/18 17:02 17:32 17:34 Temperature 101.3 F Pulse Rate 80 78 Respiratory 32 25 Rate Blood Pressure 105/0 183/94 (mmHg) O2 Sat by Pulse 96 97 96 Oximetry 08/20/18 08/20/18 08/20/18 17:36 17:37 17:38 Temperature 100.4 F Pulse Rate 79 Respiratory 27 29 Rate Blood Pressure 181/83 (mmHg) O2 Sat by Pulse 96 Oximetry 08/20/18 08/20/18 08/20/18 18:00 18:05 18:35 Temperature Pulse Rate 82 77 80 Respiratory 19 19 34 Rate Blood Pressure 173/86 154/66 (mmHg) O2 Sat by Pulse 94 97 95 Oximetry 08/20/18 08/20/18 08/20/18 18:43 19:00 19:05 Temperature 101.6 F Pulse Rate 75 79 Respiratory 17 23 Rate Blood Pressure 142/68 (mmHg) O2 Sat by Pulse 95 95 Oximetry 08/20/18 08/20/18 08/20/18 19:09 19:35 20:00 Temperature 100.3 F Pulse Rate 79 76 Respiratory 24 29 Rate Blood Pressure 154/77 (mmHg) O2 Sat by Pulse 95 95 Oximetry 08/20/18 08/20/18 20:05 20:22 Temperature 99.2 F Pulse Rate 74 Respiratory 26 Rate Blood Pressure 154/81 (mmHg) O2 Sat by Pulse 95 Oximetry Oxygen Devices in Use Now: None Appearance: nad Eyes: No Scleral Icterus, PERRLA Ears/Nose/Mouth/Throat: NL Teeth, Lips, Gums, Clear Oropharnyx, Mucous Membranes Moist Neck: NL Appearance and Movements; NL JVP, Trachea Midline, No Thyroid Enlargement, Masses Respiratory: Symmetrical Chest Expansion and Respiratory Effort, - - scattered wheezing heard in b/l upper lung choi than lower lung choi Cardiovascular: NL Sounds; No Murmurs; No JVD, RRR Abdominal: NL Sounds; No Tenderness; No Distention, - - very obese abd Extremities: - - able to raise ue and le against gravity, + 2 pedal edema from ankle to 2/3 of the leg b/l Skin: No Rash or Ulcers Neurological: Alert and Oriented x 3, NL Sensation, NL Muscle Strength and Tone Result Diagrams: 08/20/18 17:28 08/20/18 17:28 Additional Lab and Data: Lab Results 08/20/18 08/20/18 Range/Units 17:28 17:28 WBC 10.5 (3.5-10.8) 10^3/ul RBC 4.78 (4.00-5.40) 10^6/ul Hgb 15.7 (14.0-18.0) g/dl Hct 47 (42-52) % MCV 98 H (80-94) fL MCH 33 H (27-31) pg MCHC 34 (31-36) g/dl RDW 14 (10.5-15) % Plt Count 165 (150-450) 10^3/ul MPV 7.9 (7.4-10.4) fL Neut % (Auto) 85.5 % Lymph % (Auto) 5.2 % [place] % (Auto) 8.7 % Eos % (Auto) 0.2 % Baso % (Auto) 0.4 % Absolute Neuts (auto) 9.0 H (1.5-7.7) 10^3/ul Absolute Lymphs (auto) 0.5 L (1.0-4.8) 10^3/ul Absolute Monos (auto) 0.9 H (0-0.8) 10^3/ul Absolute Eos (auto) 0 (0-0.6) 10^3/ul Absolute Basos (auto) 0 (0-0.2) 10^3/ul Absolute Nucleated RBC 0 10^3/ul Nucleated RBC % 0 INR (Anticoag Therapy) 0.93 (0.77-1.02) APTT 34.2 (26.0-36.3) seconds EKG Data: ekg ns no acute st t changes Assess/Plan/Problems-Billing Assessment: this is a 73 yr old wm with hx of [place] type ii dm hx of one urinary bladder stone in 2017 was started with bactrim yesterday by xavier for one month came in due to fever and increase urination. temp is 101.4 but wbc wnl lactic acid is 2.4. he was going to be on bactrim bid for one month but only took it for one day prior to coming in ua is + ---> uti prob related to a infected bladder stone - Patient Problems (1) Urinary bladder stone Current Visit: Yes Status: Acute Comment: xavier was the one who told pt to come in currently on rocephin from er instead of po bactrim despite of normal wbc ( lactic acid is 2.4 ) pt will be made npo after midnight in case gu wants to do any procedure ---> ok to continue metformin but will hold off his glypizide (2) Elevated lactic acid level Current Visit: Yes Status: Acute Code(s): R79.89 - OTHER SPECIFIED ABNORMAL FINDINGS OF BLOOD CHEMISTRY SNOMED Code(s): 8724668 Comment: moniter trend (3) Fever Current Visit: Yes Status: Acute Code(s): R50.9 - FEVER, UNSPECIFIED SNOMED Code(s): 380100532 Comment: prob due to his uti/infected bladder stone tylenol alternate with motrin abx (4) Morbid obesity Current Visit: Yes Status: Acute Code(s): E66.01 - MORBID (SEVERE) OBESITY DUE TO EXCESS CALORIES SNOMED Code(s): 462211784 Comment: supportive care (5) [place] (obstructive sleep apnea) Current Visit: Yes Status: Acute Code(s): G47.33 - OBSTRUCTIVE SLEEP APNEA ( ADULT) (PEDIATRIC) SNOMED Code(s): 41394986 Comment: cpap support (6) Hyperlipemia Current Visit: Yes Status: Acute Code(s): E78.5 - HYPERLIPIDEMIA, UNSPECIFIED SNOMED Code(s): 33405356 Comment: lft wnl ck fasting lipid (7) BPH (benign prostatic hyperplasia) Current Visit: Yes Status: Acute Code(s): N40.0 - BENIGN PROSTATIC HYPERPLASIA WITHOUT LOWER URINRY TRACT SYMP SNOMED Code(s): 684190136 Comment: ck his psa and free psa (8) Vitamin B12 deficiency Current Visit: Yes Status: Acute Code(s): E53.8 - DEFICIENCY OF OTHER SPECIFIED B GROUP VITAMINS SNOMED Code(s): 279577365 Comment: ck b12 level (9) Macrocytosis Current Visit: Yes Status: Acute Code(s): D75.89 - OTHER SPECIFIED DISEASES OF BLOOD AND BLOOD-FORMING ORGANS SNOMED Code(s): 441542577 Comment: ck b12 level (10) Type II diabetes mellitus Current Visit: Yes Status: Acute Comment: npo after midnight will hold of his glypizide since he is on ns as ivf but will continue his metformin will use insulin with ss ck his a1c (11) Full code status Current Visit: Yes Status: Acute Code(s): Z78.9 - OTHER SPECIFIED HEALTH STATUS SNOMED Code(s): 675591916 (12) DVT prophylaxis Current Visit: Yes Status: Acute Code(s): GBR2538 - SNOMED Code(s): 421241087 Comment: heparin tid 5000 units (13) CAD (coronary artery disease) Current Visit: Yes Status: Acute Code(s): I25.10 - ATHSCL HEART DISEASE OF [place] CORONARY ARTERY W/O ANG PCTRS SNOMED Code(s): 42755130 Comment: no cp c/o tele overnight just to moniter (14) COPD (chronic obstructive pulmonary disease) Current Visit: Yes Status: Acute Code(s): J44.9 - CHRONIC OBSTRUCTIVE PULMONARY DISEASE, UNSPECIFIED SNOMED Code(s): 88181581 Comment: change duoneb to standing + prn albuterol q2 hr due to scattered wheezing heard on b/l upper lung choi
[2018-08-20] MEDS ORDERED: glipiZIDE TAB* 5 MG PO SCH (21:00)
[2018-08-20] MEDS ORDERED: Albuterol 2.5 MG/3 ML NEB.SOL* (0.083%) INH PRN (21:10)
[2018-08-20] MEDS ORDERED: Ibuprofen TAB* 400 MG ONE (21:42)
[2018-08-20] MEDS: Ibuprofen TAB* 400 MG PO PRN (21:43)
[2018-08-20] MEDS: NS 0.9% 1000 ML* 1,000 ML IV SCH (22:10)
[2018-08-20] MEDS: Heparin VIAL(*) 5000 UNITS/ML VIAL (FIVE THOUSAND) SUBCUT SCH (23:12)
[2018-08-20] MEDS: Albuterol/Ipratropium NEB.SOL* Albuterol 2.5 MG/Ipratropium 0.5 MG 3 ML INH SCH (23:13)
[2018-08-20] MEDS: Insulin LISPRO* 1 UNITS UNIT SUBCUT SCH (23:27)
[2018-08-20] MEDS: metFORMIN* 500 MG TAB PO SCH (23:27)
[2018-08-20] MEDS: Metoprolol Tartrate TAB* 100 MG TAB PO SCH (23:27)
[2018-08-20] MEDS: Atorvastatin* 20 MG TAB PO SCH (23:36)
[2018-08-20] MEDS: Ramipril CAP* 10 MG PO SCH (23:36)
[2018-08-20] MEDS: Finasteride TAB* 5 MG PO SCH (23:36)
[2018-08-20] MEDS: Allopurinol TAB* 100 MG PO SCH (23:36)
[2018-08-21] MEDS: Albuterol/Ipratropium NEB.SOL* Albuterol 2.5 MG/Ipratropium 0.5 MG 3 ML INH SCH ×2 (00:03→04:40)
[2018-08-21] MEDS: Heparin VIAL(*) 5000 UNITS/ML VIAL (FIVE THOUSAND) SUBCUT SCH (05:47)
[2018-08-21 06:04] LABS: ABS Basophils 0 10^3/ul (0-0.2); ABS Eosinophils 0 10^3/ul (0-0.6); ABS Lymphocytes 0.6 10^3/ul (1.0-4.8); ABS Monocytes 0.9 10^3/ul (0-0.8); ABS Neutrophils 6.2 10^3/ul (1.5-7.7); ABS Nucleated RBC 0 10^3/ul; Eosinophil % 0.2 %; Hematocrit 43 % (42-52); Hemoglobin 14.3 g/dl (14.0-18.0); Lymphocyte % 7.8 %; Mean Corpuscular HGB Conc 34 g/dl (31-36); Mean Corpuscular Hemoglobin 33 pg (27-31); Mean Corpuscular Volume 98 fL (80-94); Mean Platelet Volume 7.6 fL (7.4-10.4); Nucleated Red Blood Cells % 0.1; Platelet Count 133 10^3/ul (150-450); Red Blood Count 4.37 10^6/ul (4.00-5.40); Red Cell Distribution Width 15 % (10.5-15); White Blood Count 7.7 10^3/ul (3.5-10.8)
[2018-08-21 06:23] LABS: BUN/Creatinine Ratio 16.5 (8-20); Calcium 8.4 mg/dL (8.6-10.3); EGFR Non-African American 70.6 (>60); HDL Cholesterol 46.4 mg/dL; Magnesium 1.8 mg/dL (1.9-2.7); Potassium 4.1 mmol/L (3.5-5.0)
[2018-08-21 06:41] LABS: TSH (Thyroid Stimulating Horm) 1.58 mcIU/mL (0.34-5.60)
[2018-08-21] MEDS: Insulin LISPRO* 1 UNITS UNIT SUBCUT SCH ×4 (08:21→22:47)
[2018-08-21] MEDS ORDERED: Acetaminophen TAB* 325 MG PO SCH (09:00)
[2018-08-21] MEDS: Aspirin EC TAB* 81 MG TAB.EC PO SCH (09:51)
[2018-08-21] MEDS: Metoprolol Tartrate TAB* 100 MG TAB PO SCH ×2 (09:51→20:51)
[2018-08-21] MEDS: NS 0.9% 1000 ML* 1,000 ML IV SCH ×2 (09:54→19:55)
[2018-08-21] MEDS ORDERED: Gentamicin ADULT (*) 40 MG/ML VIAL IVPB ONE (12:27)
[2018-08-21 12:29] LABS: C Reactive Protein 79.52 mg/L (<8.01)
[2018-08-21] MEDS ORDERED: Cyanocobalamin INJ * 1,000 MCG/ML VIAL 1 ML VIAL IM ONE (13:04)
[2018-08-21] MEDS: cefTRIAXone(*) 1 GM in NS 0.9% 50 ML* 50 ML IVPB SCH (13:59)
[2018-08-21] MEDS ORDERED: Magnesium Sulfate 2 GM IV (Premix) IVPB ONE (14:00)
[2018-08-21] MEDS ORDERED: GENTAMICIN ADULT IVPB ONE (14:00)
[2018-08-21] MEDS ORDERED: NS 0.9% IVPB ONE (14:00)
[2018-08-21] MEDS: Atorvastatin* 20 MG TAB PO SCH (16:48)
[2018-08-21] MEDS: Ibuprofen TAB* 400 MG PO PRN (19:55)
[2018-08-21] MEDS: metFORMIN* 500 MG TAB PO SCH (20:50)
[2018-08-21] MEDS: Finasteride TAB* 5 MG PO SCH (20:50)
[2018-08-21] MEDS: Ramipril CAP* 10 MG PO SCH (20:50)
[2018-08-21] MEDS: Allopurinol TAB* 100 MG PO SCH (20:51)
[2018-08-22] MEDS: NS 0.9% 1000 ML* 1,000 ML IV SCH (04:24)
[2018-08-22 06:03] LABS: ABS Basophils 0 10^3/ul (0-0.2); ABS Eosinophils 0 10^3/ul (0-0.6); ABS Lymphocytes 0.9 10^3/ul (1.0-4.8); ABS Monocytes 0.8 10^3/ul (0-0.8); ABS Neutrophils 3.9 10^3/ul (1.5-7.7); ABS Nucleated RBC 0 10^3/ul; Eosinophil % 0.8 %; Hematocrit 41 % (42-52); Hemoglobin 13.8 g/dl (14.0-18.0); Lymphocyte % 15.4 %; Mean Corpuscular HGB Conc 33 g/dl (31-36); Mean Corpuscular Hemoglobin 33 pg (27-31); Mean Corpuscular Volume 98 fL (80-94); Mean Platelet Volume 7.5 fL (7.4-10.4); Nucleated Red Blood Cells % 0.1; Platelet Count 114 10^3/ul (150-450); Red Blood Count 4.25 10^6/ul (4.00-5.40); Red Cell Distribution Width 14 % (10.5-15); White Blood Count 5.6 10^3/ul (3.5-10.8)
[2018-08-22 06:28] LABS: BUN/Creatinine Ratio 19.5 (8-20); C Reactive Protein 94.63 mg/L (<8.01); Calcium 8.2 mg/dL (8.6-10.3); EGFR Non-African American 85.8 (>60); Phosphorus 2.7 mg/dL (2.5-5.0); Potassium 4.2 mmol/L (3.5-5.0)
[2018-08-22] MEDS: Insulin LISPRO* 1 UNITS UNIT SUBCUT SCH ×2 (08:34→12:30)
[2018-08-22] MEDS: Aspirin EC TAB* 81 MG TAB.EC PO SCH (08:34)
[2018-08-22] MEDS: Metoprolol Tartrate TAB* 100 MG TAB PO SCH (08:34)
[2018-08-22 11:20] LABS: PSA Free 0.2 ng/mL
[2018-08-22] MEDS: cefTRIAXone(*) 1 GM in NS 0.9% 50 ML* 50 ML IVPB SCH (13:54)
[2018-08-22 14:24] VITALS: BP 134/66
--- NOTE | 2018-08-23 00:56 | DS ---
CC: Dr. Dhiraj Mcgregor; Dr. Jett Baez DISCHARGE SUMMARY: DATE OF ADMISSION: 08/20/18 DATE OF DISCHARGE: 08/22/18 DISCHARGE DIAGNOSES: 1. Urinary tract infection with sepsis. 2. B12 deficiency. 3. History of coronary artery disease, status post coronary artery bypass graft x3. 4. Obesity. 5. History of atrial fibrillation. 6. Probable chronic obstructive pulmonary disease. 7. History of hypertension. 8. History of bladder stone. 9. History of gout. 10. History of colonic polyps. 11. Status post cataract extractions. 12. Type 2 diabetes mellitus. 13. Mild mitral and aortic regurgitation. HISTORY: Jerry Ames is a 73-year-old man admitted with sepsis due to urinary tract infection. Please see the dictated admission note for details of the present illnesses, past medical history, family history, social and personal history, review of systems, and physical examination. LABORATORY DATA: CBC: WBC 10.5, H and H 15.7/47, MCV 98, PLT 165K. CBC on day of discharge, 08/22/18, WBC 5.6, H and H 13.8/41, MCV 98, PLT 114K. INR/ PTT normal. Chemistries on admission, lactic acid 2.1, which came down to 1.5. Sodium 136, potassium 4.1, chloride 101, CO2 25, BUN/creatinine 20/1.08, glucose 162, calcium 9.3. Rest of the comprehensive metabolic panel was within normal limits. Troponin was 0.01. Magnesium is slightly low at 1.8, calcium slightly low at 8.4 on 08/21/18. Labs on 08/22/18 prior to discharge: Chemistries, sodium 137, potassium 4.2, chloride 108, CO2 23, BUN/creatinine 17/ 0.87, glucose 158. [id number] glucose during his hospitalization ranged from 98 to 219. Phosphorus is now at 2.7. Free PSA was 0.2, total PSA 1.1. PSA free total ratio was not calculated. Blood cultures x2 were no growth. Urine culture was no growth (probably because he had taken Keflex at home). Imaging: Chest x-ray on 08/20/18 showed cardiomegaly with pulmonary vascular congestion. EKG on 08/20/18 showed sinus rhythm, left axis deviation, otherwise normal. HOSPITAL COURSE: The patient was admitted. He received IV fluids. His lactate came down. He was felt to have a UTI due to infected bladder stone, although when I spoke with Dr. Baez, he did not have any bladder stones on recent imaging. He defervesced. He started to feel better by the day after admission. He was placed on ceftriaxone and got 1 dose of gentamicin. I discussed the case with Dr. Baez. He told me that he had recurrent urinary tract infections, postvoid residual was 100 to 110 cc. He planned to keep him on antibiotics for a month and then do a cystoscopy. He said had a TURP in the past,. He had a big bladder stone in the past, not recent. He did not feel that he needed further imaging at this time. He recommended might need another one. He recommended adding one dose of gentamicin to the regimen which was done. By the time of discharge on 08/22/18, he was feeling fine. His breathing was normal. He had control of his urine. He had been incontinent previously. He just finished getting IV fluids. His I's and O's were [id number]/?. His fingerstick blood sugars have been 98 to 195 over the previous 24 hours. His chest was clear. His heart was regular. His abdomen was nontender. His CRP was going up. CRP went from 79.5 to 94.63 from 08/21/18 to 08/22/18. It was felt that his CRP could be lagging behind his clinical course. He told me initially that he had taken Bactrim at home. I called [facility]. They confirmed that he had never had his Bactrim prescription filled, but they filled the prescription for Keflex on 07/07/18 500 mg t.i.d. for 10 days. The prescription he had gotten for Bactrim in April never been filled because it was changed to Keflex. The patient said what he had at home was a capsule. His vital signs prior to discharge were blood pressure 151/98, pulse 71, respirations 24, temperature 98, O2 sat 98%. It was noted while he was in the hospital that his B12 level was low at 156. He said that he knew that he was supposed to be taking B12, but he had not been taking it. He was given B12 one dose IM in the hospital. He is going to be restarted on oral B12 as an outpatient. At the time of discharge, his medication are as follows: 1. Cyanocobalamin (vitamin B12) 1000 micrograms daily. 2. Cephalexin 500 mg 3 times a day. He was not filling prescription for this because he said he had it at home. 3. Glipizide 5 mg twice a day. 4. Simvastatin 40 mg daily. 5. Ramipril 10 mg daily. 6. Metoprolol 100 mg twice daily. 7. Metformin 500 mg at bedtime. 8. Finasteride 5 mg daily. 9. Aspirin 81 mg daily. 10. Allopurinol 100 mg daily. 11. Acetaminophen 650 p.o. daily. DIET: Usual. ACTIVITY: As tolerated. FOLLOWUP: He is to follow up with Dr. Baez as previously planned and with Dr. Mcgregor in 1 to 2 weeks. [id number]/[facility] #: [id number] MTDD
== END 2018-08-22 14:45 | disposition home or self-care (01) ==
LOC: ED 16:42 → MED 20:23
PROVIDERS: ADMIT Internal Medicine; ATTEND Internal Medicine
DX: A41.9 Sepsis, unspecified organism (principal); N39.0 Urinary tract infection, site not specified; D51.9 Vitamin B12 deficiency anemia, unspecified; I25.10 Atherosclerotic heart disease of native coronary artery without angina pectoris; Z95.5 Presence of coronary angioplasty implant and graft; E66.9 Obesity, unspecified; I48.91 Unspecified atrial fibrillation; I10 Essential (primary) hypertension; N21.0 Calculus in bladder; Z87.39 Personal history of other diseases of the musculoskeletal system and connective tissue; Z86.010 Personal history of colon polyps; E11.9 Type 2 diabetes mellitus without complications; I34.0 Nonrheumatic mitral (valve) insufficiency; I35.1 Nonrheumatic aortic (valve) insufficiency; Z79.82 Long term (current) use of aspirin; R42 Dizziness and giddiness; R06.02 Shortness of breath
CPT/HCPCS: 36415; 71045; 80048; 80053; 80061; 81003; 81015; 82607; 83036; 83605; 83735; 83921; 84100; 84153; 84154; 84443; 84484; 85025; 85610; 85730; 86140; 87040; 87086; 93005; 94660; 96361; 96365; 96366; 96372; 99285; A9270-GY; G0378; J0696; J1580; J3420; J3475